=== PATIENT | male | born 1945 | race Caucasian/White ===

== ENCOUNTER 2017-12-19 15:43 | Emergency (ER) | payer BC, OTHER ==
--- OUTSIDE RECORDS SUMMARY | 2017-12-19 15:46 | XMS REPORT | Clinical Summary ---
:1945 Author Organization [facility] Address [address] [place] [address] Care Team Providers Name Role Phone Jaspreet May MD Primary Care Provider Allergies No Known Allergies Current Medications Prescription Sig. Disp. Refills Start Date End Date Status clonAZEPAM (KlonoPIN) 1 mg nightly. 04/27/2015 Active 1 MG tablet metoprolol succinate Take 25 mg by 04/24/2015 Active XL (TOPROL-XL) 25 MG mouth daily. 24 hr tablet sucralfate (CARAFATE) Take 1 g by 04/22/2015 Active 1 gram tablet mouth nightly. imipramine (TOFRANIL) Take 50 mg by 02/27/2015 Active 50 MG tablet mouth nightly. alendronate (FOSAMAX) Take 70 mg by 04/29/2015 Active 70 MG tablet mouth every 7 days. meloxicam (MOBIC) 7.5 Take 15 mg by 07/07/2015 Active MG tablet mouth daily. traZODone (DESYREL) Take 150 mg 01/17/2017 Active 150 MG tablet by mouth nightly. baclofen (LIORESAL) 04/22/2015 Discontinued 10 MG tablet 8 ibuprofen 04/22/2015 Discontinued (ADVIL,MOTRIN) 600 MG 8 tablet traZODone (DESYREL) 04/01/2015 Discontinued 100 MG tablet 7 tiZANidine (ZANAFLEX) 04/24/2015 Discontinued 4 MG tablet 8 furosemide (LASIX) 40 05/02/2015 Discontinued MG tablet 8 ciclopirox 0.77 % gel 08/24/2015 Discontinued 8 XARELTO 10 mg tablet 08/21/2015 Discontinued 8 potassium citrate Take by mouth Discontinued (UROCIT-K) 10 mEq 3 (three) 8 (1,080 mg) CR tablet times a day with meals. cephalexin (KEFLEX) Take 1 21 capsule 0 11/23/2017 250 MG capsule capsule (250 8 mg total) by mouth 3 (three) times a day for 7 days. phenazopyridine Take 1 tablet 9 tablet 0 11/23/2017 (PYRIDIUM) 200 MG (200 mg 8 tablet total) by mouth 3 (three) times a day for 3 days. traMADol (ULTRAM) 50 Take 1 tablet 40 tablet 0 11/23/2017 mg tablet (50 mg total) 8 by mouth every 6 (six) hours as needed for moderate pain (pain) for up to 8 days. 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 Encounters Date Type Specialty Care Team Description 12/19/2017 Hospital Encounter Radiology [facility] Kidney stones Addi MD 12/19/2017 Pre-Admit Testing Pre-Admission [facility] Preop examination (Primary Dx); Appointment Testing Addi MD History of hepatitis B 12/19/2017 Telephone Urology Shantelle Braxton MA 12/19/2017 Anesthesia Event Pre-Admission Lucy Wolf WJacquie, OUTPATIENT INTERVIEWING CLERK 11/28/2017 Office Visit Urology [facility] Kidney stones Addi MD (Primary Dx) 11/23/2017 Hospital Encounter Urology [facility] Ureteral calculus, , Addi Good MD right 11/23/2017 Procedure Pass Urology 11/23/2017 Surgery [facility] CYSTOSCOPY, RIGHT , Addi Good MD URETEROSCOPY W/ RIGHT RETROGRADE PYELOGRAM, RIGHT LITHOTRIPSY, RIGHT DOUBLE J STENT PLACEMENT 11/21/2017 Anesthesia Event Urology Ela Patel, OPAL 11/20/2017 Pre-Admit Testing Pre-Admission [facility] Preop testing Appointment Testing Addi MD (Primary Dx) 11/17/2017 Ancillary Orders Urology [facility]-C[facility] Kidney stone , Addi Good MD 11/16/2017 Office Visit Urology [facility] BPH with elevated PSA ( Primary Dx); , Addi Good MD Calculus of kidney 11/10/2017 Telephone Urology Latisha Peralta, Kidney stone (Primary [place] Dx) 11/07/2017 Procedure visit Urology [facility] Elevated PSA; , Addi Good MD Calculus of other lower urinary tract location 11/07/2017 Orders Only Urology Lisa-Addi Cruz MD 11/02/2017 Hospital Encounter Radiology [facility] Elevated PSA; , Addi Good MD Calculus of other lower urinary tract location 11/01/2017 Telephone Urology Latisha Peralta, [place] 10/30/2017 Telephone Urology Addi Arteaga MD 10/27/2017 Telephone Urology Latisha [place], [place] 10/24/2017 Office Visit Urology [facility] Elevated PSA (Primary Dx); , Addi Good MD Calculus of kidney 09/19/2017 Telephone Urology Latisha [place], [place] 06/13/2017 Telephone Urology Addi Arteaga MD 06/08/2017 Office Visit Urology [facility] Elevated PSA (Primary , Addi Good MD Dx) 04/26/2017 Orders Only Urology Addi Arteaga MD 04/25/2017 Office Visit Urology [facility]Cruz BPH with , Addi Good MD obstruction/lower urinary tract symptoms (Primary Dx) 01/26/2017 Office Visit Urology Lisa-Anthony Kidney stones (Primary Dx); , Addi Good MD BPH without obstruction/lower urinary tract symptoms after 12/18/2016 Family History Medical History Relation Name Comments Cancer Father No Known Problems Mother Relation Name Status Comments Father Mother Social History Tobacco Use Types Packs/Day Years Used Date Never Smoker Smokeless Tobacco: Never Used Alcohol Use Drinks/Week oz/Week Comments No Sex Assigned at Date Recorded Not on file Last Filed Vital Signs Vital Sign Reading Time Taken Blood Pressure 110/73 12/19/2017 9:15 AM EXECUTIVE SEARCH CONSULTANT Pulse 82 12/19/2017 9:15 AM EXECUTIVE SEARCH CONSULTANT Temperature 36.1 C (96.9 F) 12/19/2017 9:15 AM EXECUTIVE SEARCH CONSULTANT Respiratory Rate 16 12/19/2017 9:15 AM EXECUTIVE SEARCH CONSULTANT Oxygen Saturation 98% 12/19/2017 9:15 AM EXECUTIVE SEARCH CONSULTANT Inhaled Oxygen Concentration - - Weight 98.7 kg (217 lb 8 oz) 11/23/2017 11:30 AM CDT Height 185.4 cm (6' 1") 12/19/2017 9:15 AM EXECUTIVE SEARCH CONSULTANT Body Mass Index 29.5 11/23/2017 11:30 AM CDT Plan of Treatment Date Type Specialty Care Team Description 12/26/2017 Surgery Urology Addi Arteaga MD LEFT ESWL [address] [facility] [address] [place], [place] [id number] 12/26/2017 Procedure Pass Urology 12/26/2017 Hospital Encounter Urology Addi Arteaga MD [address] [facility] [address] [place] [address] [phone] 01/25/2018 Office Visit Urology Addi Arteaga MD [address] [facility] [address] [place] [address] [phone] Health Maintenance Due Date Last Done Comments COLON CANCER SCREENING 02/12/1994 SHINGRIX VACCINE (#1) 02/12/1994 ZOSTER VACCINE 2004 PNEUMOCOCCAL-13 02/12/2009 INFLUENZA VACCINE 09/13/2017 02/04/2014 PNEUMOCOCCAL POLYSACCHARIDE VACCINE AGE 65 AND OVER Completed 02/04/2014 Implants Implanted Type Area Clerical Manager Device Expiration Model / Identifier Date Serial / Lot Stent Contour Injection 6x28 - [id number] Surgical N/A: N/A [facility] UROLOGY 08/24/2019 [id number] / Implanted: Qty: 1 on 11/23/2017 by Addi Arteaga MD Stents / [id number] Procedures Procedure Name Priority Date/Time Associated Comments Diagnosis URINE CULTURE Routine 12/19/2017 11:33 Results for this AM EXECUTIVE SEARCH CONSULTANT procedure are in the results section. XR KUB KIDNEY URETER Routine 12/19/2017 10:00 Kidney stones Results for this BLADDER AM EXECUTIVE SEARCH CONSULTANT procedure are in the results section. URINALYSIS SCREEN AND Routine 12/19/2017 9:06 Preop examination Results for this MICROSCOPY, WITH REFLEX AM EXECUTIVE SEARCH CONSULTANT procedure are in TO CULTURE the results section. ESTIMATED GFR Routine 12/19/2017 9:05 Results for this AM EXECUTIVE SEARCH CONSULTANT procedure are in the results section. PARTIAL THROMBOPLASTIN Routine 12/19/2017 9:05 Preop examination Results for this TIME (PTT) AM EXECUTIVE SEARCH CONSULTANT History of procedure are in hepatitis B the results section. PROTHROMBIN TIME WITH Routine 12/19/2017 9:05 Preop examination Results for this INR AM EXECUTIVE SEARCH CONSULTANT History of procedure are in hepatitis B the results section. CBC HEMOGRAM Routine 12/19/2017 9:05 Preop examination Results for this AM EXECUTIVE SEARCH CONSULTANT procedure are in the results section. BASIC METABOLIC PANEL Routine 12/19/2017 9:05 Preop examination Results for this AM EXECUTIVE SEARCH CONSULTANT procedure are in the results section. CALCULI ANALYSIS WITH Routine 11/23/2017 2:30 Results for this PHOTO PM CDT procedure are in the results section. WV AN ELECTIVE Routine 11/23/2017 1:37 SUPRAGLOTTIC AIRWAY PM CDT Procedure Note - Dang Chauhan CRNA - 11/23/2017 1:37 PM CDT Airway Performed by: DANG CHAUHAN Authorized by: DARIA RAMOS Location: OR Urgency: Elective Difficult Airway: No Anesthesiologist: DARIA RAMOS Resident/INTERNAL AUDIT SENIOR MANAGER/AA: DANG CHAUHAN Performed by: resident/INTERNAL AUDIT SENIOR MANAGER/AA Preoxygenated with 100% O2: Yes Final Airway Type: Supraglottic airway Final LMA: Ambu LMA Size: 5 Number of Attempts at Approach: 1 CYSTO, URETEROSCOPY 11/23/2017 1:00 PM CDT Ureteral calculus, right Case Notes REQ 0800 START Special Needs REQ 0800 START POC PANEL Routine 11/23/2017 11:33 AM Results for this CDT procedure are in the results section. ESTIMATED GFR Routine 11/23/2017 11:33 AM Results for this CDT procedure are in the results section. URINE CULTURE Routine 11/20/2017 10:15 AM Results for this CDT procedure are in the results section. GRAM STAIN Routine 11/20/2017 10:15 AM Results for this CDT procedure are in the results section. HEPATIC FUNCTION Routine 11/20/2017 9:53 AM Preop testing Results for this PANEL CDT procedure are in the results section. ECG PRE/POST OP Routine 11/20/2017 9:48 AM Preop testing Results for this CDT procedure are in the results section. URINALYSIS SCREEN Routine 11/20/2017 9:38 AM Preop testing Results for this AND MICROSCOPY, WITH CDT procedure are in REFLEX TO CULTURE the results section. ESTIMATED GFR Routine 11/20/2017 9:37 AM Results for this CDT procedure are in the results section. BASIC METABOLIC Routine 11/20/2017 9:37 AM Preop testing Results for this PANEL CDT procedure are in the results section. CBC HEMOGRAM Routine 11/20/2017 9:37 AM Preop testing Results for this CDT procedure are in the results section. CT ABDOMEN PELVIS WO Routine 11/17/2017 8:28 AM Kidney stone Results for this CONTRAST CDT procedure are in the results section. [id number] Routine 11/16/2017 8:54 AM BPH with elevated Results for this CDT PSA procedure are in the results section. PTH, INTACT AND Routine 11/07/2017 10:43 AM Results for this CALCIUM CDT procedure are in the results section. US ABDOMINAL AORTA Routine 11/07/2017 9:13 AM Elevated PSA Results for this CDT Calculus of other procedure are in lower urinary the results tract location section. XR KUB KIDNEY URETER Routine 11/02/2017 10:55 AM Elevated PSA Results for this BLADDER CDT Calculus of other procedure are in lower urinary the results tract location section. PROSTATE SPECIFIC Routine 10/24/2017 3:46 PM Elevated PSA Results for this ANTIGEN CDT procedure are in the results section. POC URINALYSIS Routine 10/24/2017 12:45 PM Elevated PSA Results for this DIPSTICK CDT procedure are in the results section. US RENAL Routine 04/26/2017 12:00 AM CDT PSA, TOTAL AND FREE Routine 04/25/2017 2:22 PM BPH with Results for this CDT obstruction/lower procedure are in urinary tract the results symptoms section. POC URINALYSIS Routine 04/25/2017 1:43 PM BPH with Results for this DIPSTICK CDT obstruction/lower procedure are in urinary tract the results symptoms section. POC URINALYSIS Routine 01/26/2017 9:44 AM Kidney stones Results for this DIPSTICK EXECUTIVE SEARCH CONSULTANT BPH without procedure are in obstruction/lower the results urinary tract section. symptoms after 12/18/2016 Results Urine culture (12/19/2017 11:33 AM)Only the most recent of2 resultswithin the time period is included. Urine culture SEE COMMENTComment: Bacteriuria [facility] OF PATHOLOGY screen negative. AND GENOMIC MEDICINE Performing Organization Address [facility] Phone Number [facility] DE[facility] OF PATHOLOGY AND [address] [place] [address] GENOMIC MEDICINE XR Kub Kidney Ureter Bladder (12/19/2017 10:00 AM)Only the most recent of2 resultswithin the time period is included. Narrative Performed At EXAMINATION:XR KUB KIDNEY URETER [facility] CLINICAL HISTORY:N20.0 Calculus of kidney, kidney stone COMPARISON:To previous study from 11/02/2017 FINDINGS: Large amount of feces throughout the colon is present. No small bowel distention is appreciated. No abnormal abdominal calcifications are present. Multiple kyphoplasties are noted. IMPRESSION: Unremarkable abdominal radiograph. [facility]-[id number] Procedure Note Hm Interface, Radiology Results Incoming - 12/19/2017 10:04 AM EXECUTIVE SEARCH CONSULTANT EXAMINATION: XR KUB KIDNEY URETER BLADDER CLINICAL HISTORY: N20.0 Calculus of kidney, kidney stone COMPARISON: To previous study from 11/02/2017 FINDINGS: Large amount of feces throughout the colon is present. No small bowel distention is appreciated. No abnormal abdominal calcifications are present. Multiple kyphoplasties are noted. IMPRESSION: Unremarkable abdominal radiograph. [facility]-[id number] Performing Organization Address [facility] Phone Number [facility] [address] [place] [address] Urinalysis screen and microscopy, with reflex to culture (12/19/2017 9:06 AM) Only the most recent of2 resultswithin the time period is included. Specimen site Clean catch [facility] OF PATHOLOGY AND GENOMIC MEDICINE Color, UA Yellow [facility] PATHOLOGY AND GENOMIC MEDICINE Appearance, UA Clear [facility] OF PATHOLOGY AND GENOMIC MEDICINE Specific gravity, UA 1.023 1.001 - 1.035 [facility] OF PATHOLOGY AND GENOMIC MEDICINE pH, UA 5.0 5.0 - 8.5 [facility] OF PATHOLOGY AND GENOMIC MEDICINE Protein, UA 1+ (A) Negative [facility] OF PATHOLOGY AND GENOMIC MEDICINE Glucose, UA Negative Negative [facility] OF PATHOLOGY AND GENOMIC MEDICINE Ketones, UA Negative Negative [facility] OF PATHOLOGY AND GENOMIC MEDICINE Bilirubin, UA Negative Negative [facility] OF PATHOLOGY AND GENOMIC MEDICINE Blood, UA Negative Negative [facility] OF PATHOLOGY AND GENOMIC MEDICINE Nitrite, UA Negative Negative [facility] OF PATHOLOGY AND GENOMIC MEDICINE Urobilinogen, UA Footnote <2.0 [facility] DEPARTMENT OF Comment: PATHOLOGY AND GENOMIC Unable to report MEDICINE Corrected result; previously reported as 2.0 on 12/19/2017 at 11:48 by I/AUT Leukocyte esterase, UA Negative Negative [facility] OF PATHOLOGY AND GENOMIC MEDICINE WBC, UA 2 (H) 0 - 1 /HPF [facility] OF PATHOLOGY AND GENOMIC MEDICINE RBC, UA 1 0 - 5 /HPF [facility] OF PATHOLOGY AND GENOMIC MEDICINE Bacteria, UA Few None seen [facility] OF PATHOLOGY AND GENOMIC MEDICINE Yeast, UA None seen [facility] OF PATHOLOGY AND GENOMIC MEDICINE Yeast with None seen [facility] DE[facility]MENT OF pseudohyphae, UA PATHOLOGY AND GENOMIC MEDICINE Hyaline casts, UA >20 (A) /LPF [facility] OF PATHOLOGY AND GENOMIC MEDICINE Specimen Urine Performing Organization Address City/[facility] Cent[facility]ode Phone Number [facility] OF PATHOLOGY AND [address] [place] [phone] [facility] Estimated GFR (12/19/2017 9:05 AM)Only the most recent of3 resultswithin the time period is included. Estimated GFR 44 (A) mL/min/1.73 m2 [facility] OF Comment: PATHOLOGY AND GENOMIC CatergoryUnitsInterpretation MEDICINE G1 >=90 Normal or high G2 60-89Mildly decreased [id number] to moderately decreased V4c65-66Yairpercag to severely decreased G4 15-29Severely decreased G5 <15Kidney failure The eGFR was calculated using the Chronic Kidney Disease Epidemiology Collaboration (CKD-EPI) equation. Interpretation is based on recommendations of the National Kidney Foundation-Kidney Disease Outcomes Quality Initiative (NKF-KDOQI) published in 2014. Specimen Plasma specimen Performing Organization Address City/State/Zipcode Phone Number [facility]MENT OF PATHOLOGY AND [address] [place] [address] [facility] Partial thromboplastin time, activated (12/19/2017 9:05 AM) PTT 30.9 23.0 - 36.0 sec [facility] PATHOLOGY Comment: AND [facility] PTT therapeutic range for unfractionated heparin is 61.0-112.0 seconds which corresponds to Anti-Xa 0.3-0.7 U/ml. Specimen Blood Performing Organization Address City/[facility] Cent[facility]ode Phone Number [facility] OF PATHOLOGY AND [address] [place] [address] [facility] Prothrombin time with INR (12/19/2017 9:05 AM) Prothrombin time 14.0 11.5 - 14.5 sec [facility] DE[facility] OF PATHOLOGY AND GENOMIC MEDICINE INR 1.1 [facility]PARTMENT OF Comment: PATHOLOGY AND GENOMIC The International Normalized Ratio (INR) is a therapeutic MEDICINE monitoring tool for patients who are stable on oral anticoagulant therapy. An INR of 2.0-3.0 is suggested for deep vein thrombosis/pulmonary embolism. Specimen Blood Performing Organization Address City/[facility] Phone Number [facility] PATHOLOGY AND [address] [place], [place] [id number] [facility] CBC hemogram (12/19/2017 9:05 AM)Only the most recent of2 resultswithin the time period is included. WBC 7.59 4.50 - 11.00 k/uL [facility] DE[facility] OF PATHOLOGY AND GENOMIC MEDICINE RBC 4.72 4.40 - 6.00 m/uL [facility] DE[facility] OF PATHOLOGY AND GENOMIC MEDICINE HGB 12.3 (L) 14.0 - 18.0 g/dL [facility] OF PATHOLOGY AND GENOMIC MEDICINE HCT 39.6 (L) 41.0 - 51.0 % [facility] OF PATHOLOGY AND GENOMIC MEDICINE MCV 83.9 82.0 - 100.0 fL [facility]MENT OF PATHOLOGY AND GENOMIC MEDICINE MCH 26.1 (L) 27.0 - 34.0 pg [facility] OF PATHOLOGY AND GENOMIC MEDICINE MCHC 31.1 31.0 - 37.0 g/dL [facility] OF PATHOLOGY AND GENOMIC MEDICINE RDW - SD 44.5 37.0 - 55.0 fL [facility] OF PATHOLOGY AND GENOMIC MEDICINE MPV 10.9 8.8 - 13.2 fL [facility]MENT OF PATHOLOGY AND GENOMIC MEDICINE Platelet count 226 150 - 400 k/uL [facility]MENT OF PATHOLOGY AND GENOMIC MEDICINE Nucleated RBC 0.00 /100 WBC [facility] DE[facility]MENT OF PATHOLOGY AND GENOMIC MEDICINE Specimen Blood Performing Organization Address City/[facility] Cent[facility]ode Phone Number [facility] OF PATHOLOGY AND [address] [place] [address] [facility] Basic metabolic panel (12/19/2017 9:05 AM)Only the most recent of2 resultswithin the time period is included. Sodium 138 135 - 148 mEq/L [facility] OF PATHOLOGY AND GENOMIC MEDICINE Potassium 6.2 (HH) 3.5 - 5.0 mEq/L [facility] OF PATHOLOGY AND GENOMIC MEDICINE Chloride 103 98 - 112 mEq/L [facility]MENT OF PATHOLOGY AND GENOMIC MEDICINE CO2 25 24 - 31 mEq/L [facility] OF PATHOLOGY AND GENOMIC MEDICINE Anion gap 10@ANIO 7 - 15 mEq/L [facility] OF PATHOLOGY AND GENOMIC MEDICINE BUN 25 (H) 8 - 23 mg/dL [facility] OF PATHOLOGY AND GENOMIC MEDICINE Creatinine 1.54 (H) 0.70 - 1.20 mg/dL [facility] OF PATHOLOGY AND GENOMIC MEDICINE Glucose 84 65 - 99 mg/dL [facility]MENT OF PATHOLOGY AND GENOMIC MEDICINE Calcium 9.4 8.8 - 10.2 mg/dL [facility] OF PATHOLOGY AND GENOMIC MEDICINE Specimen Plasma specimen Performing Organization Address City/State/Zipcode Phone Number [facility] OF PATHOLOGY AND [address] [place] [address] [facility] Calculi analysis with photo (11/23/2017 2:30 PM) Calculi mass 5 mg [facility] Calculi number 1 [facility] Calculi size 1 to 4 mm [facility] Calculi descrption See Note [facility] Comment: Specimen consists of a single, small, brown/joseph, irregular calculus. Calculi composition See Note [facility] Comment: Calculi composed primarily of calcium oxalate monohydrate. INTERPRETIVE INFORMATION: Calculi (Stone) analysis Calculi are the products of physiological processes that yield crystalline compounds in a matrix of biological compounds and blood.Matrix components are not reported.The clinically significant crystalline components identified in calculi specimens are reported.Gross description may not be consistent with composition determined by FTIR analysis. EER calculi (stone) analysis See Note [facility] and photo Comment: Access [facility] Enhanced Report using either link below: -Direct access: [email or web address] -Enter Username, Password: [email or web address] Username: [email or web address] Password: [email or web address] Performed by [facility], [address] [place] [address] [email or web address], Pavan Dyer MD - Lab. Director Specimen Serum Narrative Performed At [id number] [facility] RIGHT RENAL STONE Performing Organization Address City/[facility]/Zipcode Phone Number [facility] [address] [place] [address] POC panel (11/23/2017 11:33 AM) POC sodium 140 135 - 148 mmol/L [facility]MENT OF PATHOLOGY AND GENOMIC MEDICINE POC potassium 5.3 (H) 3.5 - 5.0 mmol/L [facility] OF PATHOLOGY AND GENOMIC MEDICINE POC chloride 103 99 - 109 mmol/L [facility] OF PATHOLOGY AND GENOMIC MEDICINE POC CO2 28 24 - 31 mmol/L [facility] OF PATHOLOGY AND GENOMIC MEDICINE POC glucose 103 (H) 65 - 99 mg/dL [facility] OF PATHOLOGY AND GENOMIC MEDICINE POC BUN 26 (H) 8 - 24 mg/dL [facility] OF PATHOLOGY AND GENOMIC MEDICINE POC creatinine 1.3 (H) 0.7 - 1.2 mg/dl [facility] OF PATHOLOGY AND GENOMIC MEDICINE POC hematocrit 38 (L) 41 - 51 % [facility]MENT OF PATHOLOGY AND GENOMIC MEDICINE POC anion gap 15 8 - 20 mmol/L [facility]MENT OF PATHOLOGY Comment: AND [facility] MEDICINE Meter ID: [id number] [employer] Professional: Cirilo Bowie Performing Organization Address [facility] Cent[facility]ode Phone Number [facility] OF PATHOLOGY AND [address] [place] [address] GENOMIC MEDICINE Gram stain (11/20/2017 10:15 AM) Gram stain result Few WBC's [facility] PATHOLOGY No organisms seen AND [facility]IC[facility] Comment: Specimen Information Specimen Source: Urine Specimen Site: Clean catch Specimen Urine Performing Organization Address City/[facility]/Zipcode Phone Number [facility]MENT OF PATHOLOGY AND [address] [place] [address] GENOMIC MEDICINE Hepatic function panel (11/20/2017 9:53 AM) Albumin 3.2 (L) 3.5 - 5.0 g/dL [facility]MENT OF PATHOLOGY AND GENOMIC MEDICINE Total bilirubin <0.2 0.0 - 1.2 mg/dL [facility]MENT OF PATHOLOGY AND GENOMIC MEDICINE Bilirubin direct <0.2 0.0 - 0.3 mg/dL [facility] DE[facility]MENT OF PATHOLOGY AND GENOMIC MEDICINE Alkaline phosphatase 101 40 - 129 U/L [facility] DEPARTMENT OF PATHOLOGY AND GENOMIC MEDICINE Protein 6.6 6.3 - 8.3 g/dL [facility]PARTMENT OF Comment: PATHOLOGY AND GENOMIC [place] 4.6-7.0 g/dL MEDICINE 1 week 4.4-7.6 g/dL 7 months-1year5.1-7.3 g/dL 1-2 years5.6-7.5 g/dL >3 years6.0-8.0 g/dL 18-150 6.3-8.3 g/dL ALT 12 5 - 50 U/L [facility] DEPARTMENT OF PATHOLOGY AND GENOMIC MEDICINE AST 11 10 - 50 U/L [facility] DE[facility]MENT OF PATHOLOGY AND GENOMIC MEDICINE Specimen Plasma specimen Performing Organization Address City/[facility] Phone Number [facility]MENT OF PATHOLOGY AND [address] [place] [address] [facility] ECG Pre/Post Op (11/20/2017 9:48 AM) Ventricular rate 74 [facility] MUSE Atrial rate 74 [facility] [place] interval 154 [facility] QRSD interval 118 [facility] QT interval 390 [facility] QTC interval 432 [facility] P axis 1 58 [facility] QRS axis 1 -3 [facility] T wave axis 83 [facility] EKG impression Normal sinus rhythm-Left ventricular [facility] hypertrophy with QRS widening-Inferior infarct , age undetermined-Abnormal ECG-No previous ECGs available- Performing Organization Address [facility] [place] Phone Number [facility] [place] [address] [place] [address] CT Abdomen Pelvis Wo Contrast (11/17/2017 8:28 AM) Narrative Performed At EXAMINATION:CT ABDOMEN PELVIS WO CONTRAST RADIANT CLINICAL HISTORY:N20.0 Calculus of kidney, stone protocol TECHNIQUE: Multiple axial images of the abdomen and pelvis were obtained without intravenous administration of iodinated contrast. Sagittal and coronal computerized reformatted images were also obtained. The lack of intravenous contrast reduces the sensitivity of detecting solid organ disease.CT imaging was performed with iterative reconstruction technique and/or automated exposure control to reduce radiation dose. COMPARISON:09/16/2015 FINDINGS: Abdomen: Small hiatal hernia is seen. Subsegmental lingular atelectasis is seen. The liver, spleen, adrenals are normal in appearance. Gallbladder is unremarkable. Pancreas is fatty. There is mild right hydronephrosis versus parapelvic cysts. There is a proximal right ureteral stone measuring 8 mm. Left parapelvic renal cysts are seen. Stone in the left kidney is 7 mm. A couple tiny right renal stones are also seen. Appendix is unremarkable. Mild mesenteric stranding is unchanged. Pelvis: Sigmoid diverticula are seen. No enlarged pelvic or mass is identified. Bones are osteopenic. L1, T12, and T8 kyphoplasty changes are present. Bladder is unremarkable. IMPRESSION: Proximal 8mm right ureteral obstructing stone. Small hiatal hernia. A message was left for Dr. Arteaga at the time of this dictation. [id number] Procedure Note Hm Interface, Radiology Results Incoming - 11/17/2017 10:06 AM CDT EXAMINATION: CT ABDOMEN PELVIS WO CONTRAST CLINICAL HISTORY: N20.0 Calculus of kidney, stone protocol TECHNIQUE: Multiple axial images of the abdomen and pelvis were obtained without intravenous administration of iodinated contrast. Sagittal and coronal computerized reformatted images were also obtained. The lack of intravenous contrast reduces the sensitivity of detecting solid organ disease.CT imaging was performed with iterative reconstruction technique and/or automated exposure control to reduce radiation dose. COMPARISON: 09/16/2015 FINDINGS: Abdomen: Small hiatal hernia is seen. Subsegmental lingular atelectasis is seen. The liver, spleen, adrenals are normal in appearance. Gallbladder is unremarkable. Pancreas is fatty. There is mild right hydronephrosis versus parapelvic cysts. There is a proximal right ureteral stone measuring 8 mm. Left parapelvic renal cysts are seen. Stone in the left kidney is 7 mm. A couple tiny right renal stones are also seen. Appendix is unremarkable. Mild mesenteric stranding is unchanged. Pelvis: Sigmoid diverticula are seen. No enlarged pelvic or mass is identified. Bones are osteopenic. L1, T12, and T8 kyphoplasty changes are present. Bladder is unremarkable. IMPRESSION: Proximal 8mm right ureteral obstructing stone. Small hiatal hernia. A message was left for Dr. Arteaga at the time of this dictation. [id number] Performing Organization Address City/State/Zipcode Phone Number [facility] [address] [place] [address] POC BLADDER SCAN/PVR (11/16/2017 8:54 AM) Specimen Urine Impressions Performed At 36 ml PTH, intact and calcium (11/07/2017 10:43 AM) Calcium 9.2 8.6 - 10.2 mg/dL [facility] PTH 41 15 - 65 pg/mL [facility] PTH Comment [facility] 02 Comment: Interpretation Intact PTHCalcium (pg/mL) (mg/dL) Vcfvdd36 - 65 8.6 - 10.2 Primary Hyperparathyroidism >65>10.2 Secondary Hyperparathyroidism >65<10.2 Non-Parathyroid Hypercalcemia <65>10.2 Hypoparathyroidism<15 < 8.6 Non-Parathyroid [id number] - 65< 8.6 Narrative Performed At Performed at:01 - [facility] [address] [place], [id number] Regional Account Manager: Eric Zuluaga MD, Phone:[phone] Performed at: - [id number] Regional Account Manager: Jasvir Palmer MD, Phone:[phone] Performing Organization Address [facility] [place] Phone Number [facility] 02 US Abdominal Aorta (11/07/2017 9:13 AM) Narrative Performed At Renal Ultrasound: [employer] Bilateral renal Ultrasound is performed in Axial and longitudinal orientation. Diagnosis: calculus of Kidney, Elevated PSA Right Kidney: Size: Length: 10.3 cm. X AP diameter: 4.7 cm. X Transverse 4.4 cm. Echogenicity: Normal Atrophy: No Cyst:Yes Mass:No Stone:Yes Hydronephrosis:none Grade: Left Kidney: Size: Length: 10.8 cm. X AP diameter: 5.1 cm. X Transverse 4.7 cm. Echogenicity: Normal Atrophy: No Cyst:Yes Mass:No Stone:Yes Hydronephrosis:none Grade: Post Void Residual:0 mL. Comments: Bilateral small parapelvic cysts are identified. 6 mm calcification at lower pole of right kidney and sub-centimert calcification is seen in lower pole left kidney . Performing Organization Address City/[facility] Phone Number [employer] [address] [place] [address] Prostate specific antigen (10/24/2017 3:46 PM) PSA 2.5 0.0 - 4.0 ng/mL [facility] Comment: Dima ECLIA methodology. According to the [place] [employer], Serum PSA should decrease and remain at undetectable levels after radical prostatectomy. The AUA defines biochemical recurrence as an initial PSA value 0.2 ng/mL or greater followed by a subsequent confirmatory PSA value 0.2 ng/mL or greater. Values obtained with different assay methods or kits cannot be used interchangeably. Results cannot be interpreted as absolute evidence of the presence or absence of malignant disease. Specimen Blood Narrative Performed At Performed at: - [facility] [address] [facility], [id number] Regional Account Manager: Eric Zuluaga MD, Phone:[phone] Performing Organization Address City/State/Zipcode Phone Number [facility] POC urinalysis dipstick (10/24/2017 12:45 PM)Only the most recent of3 resultswithin the time period is included. Color urine, POC Yellow Clarity urine, POC Clear Glucose urine, POC Negative Negative Bilirubin urine, POC Positive (A) Negative Ketones urine, POC Trace (A) Negative Specific gravity urine, POC 1.025 1.005 - 1.030 Blood urine, POC Negative Negative pH urine, POC 6.0 5.0, 5.5, 6.0, 6.5, 7.0, 7.5, 8.0, 8.5 Protein urine, POC 1+ (A) Negative Urobilinogen urine, POC <2.0 <2.0 Nitrite urine, POC Negative Negative Leukocyte esterase urine, POC Negative Negative Specimen Urine US Renal (04/26/2017) Narrative Performed At PSA, total and free (04/25/2017 2:22 PM) PSA 3.4 0.0 - 4.0 ng/mL [facility] Comment: Dima ECLIA methodology. According to the [employer] [place] [employer], Serum PSA should decrease and remain at undetectable levels after radical prostatectomy. The AUA defines biochemical recurrence as an initial PSA value 0.2 ng/mL or greater followed by a subsequent confirmatory PSA value 0.2 ng/mL or greater. Values obtained with different assay methods or kits cannot be used interchangeably. Results cannot be interpreted as absolute evidence of the presence or absence of malignant disease. PSA, free 1.01Comment: Dima ECLIA methodology. N/A ng/mL [facility] PSA, free percent 29.7 % [facility] Comment: The table below lists the probability of prostate cancer for men with non-suspicious DEB results and total PSA between 4 and 10 ng/mL, by patient age (Janel et al, ANIA 1998, 279:1542). % Free PSA 50-64 yr 65-75 yr 0.00-10.00%56% 55% 10.01-15.00%24% 35% 15.01-20.00%17% 23% 20.01-25.00%10% 20% >25.00% 5% 9% Please note:Janel et al did not make specific recommendations regarding the use of percent free PSA for any other population of men. Specimen Blood Narrative Performed At Performed at: [facility] [address] [place], [id number] Regional Account Manager: Eric Zuluaga MD, Phone:[phone] Performing Organization Address City/State/Zipcomi Phone Number [facility] after 12/18/2016 Insurance Payer Benefit Plan / Group Subscriber ID Type Phone Address MEDICARE MEDICARE PART A AND B xxxxxxxxxx Medicare [place], [place] BCBS BCBS CHOICE PPO/FEDERAL EMPL PPO xxxxxxxxx PPO Home: [facility] LEAH MARY ANN Jacquie [phone] [address]
--- OUTSIDE RECORDS SUMMARY | 2017-12-19 15:46 | XMS REPORT ---
:1945 Author Organization [facility] Address [address] [place] [address] Dr. Lamb [address] [place] [id number] Care Team Providers Name Role Phone JUAN SANTO Primary Care Provider Unavailable Problems This patient has no known problems. Allergies, Adverse Reactions, Alerts This patient has no known allergies or adverse reactions. Medications This patient has no known medications. Encounters Start End Encounter Admission Attending Care Care Encounter Date/Time Date/Time Type Type Clinicians Facility Department ID 2016-09-14 2016-09-14 Outpatient C [facility] [id number] 10:25:00 10:25:00
[2017-12-19 16:24] LABS: Potassium 5.3 mmol/L (3.5-5.1)
--- NOTE | 2017-12-19 16:29 | ER ---
Nurse's Notes [facility] Name: Deangelo Borges Jr Age: 72 yrs Sex: Male : 1945 Arrival Date: 12/19/2017 Time: 15:44 Bed 14 Private MD: Diagnosis: Encounter for screening for nutritional, metabolic and other endocrine disorders Presentation: 12/19 15:45 Presenting complaint: Patient states: blood work for pre op for lithotripsy showed K of hj 6.2; was told to come to the ED;. Transition of care: patient was not received from another setting of care. Onset of symptoms was December 19, 2017. Risk Assessment: Do you want to hurt yourself or someone else? Patient reports no desire to harm self or others. Initial Sepsis Screen: Does the patient meet any 2 criteria? No. Patient's initial sepsis screen is negative. Does the patient have a suspected source of infection? No. Patient's initial sepsis screen is negative. Care prior to arrival: None. 15:45 Method Of Arrival: Ambulatory 15:45 Acuity: JOSE 3 hj Triage Assessment: 15:50 General: Appears in no apparent distress. uncomfortable, Behavior is calm, cooperative, hj appropriate for age. Pain: Denies pain. Historical: - Allergies: 15:49 No Known Allergies; hj - PMHx: 15:49 Kidney stones; CHF; hj - PSHx: 15:49 joint surgery; hj - Immunization history:: Adult Immunizations up to date. - Social history:: Smoking status: Patient/guardian denies using tobacco, Patient/guardian denies using alcohol. - Ebola Screening: : Patient negative for fever greater than or equal to 101.5 degrees Fahrenheit, and additional compatible Ebola Virus Disease symptoms Patient denies exposure to infectious person Patient denies travel to an Ebola-affected area in the 21 days before illness onset. Screenin:50 Abuse screen: Denies threats or abuse. Denies injuries from another. Nutritional hj screening: No deficits noted. Tuberculosis screening: No symptoms or risk factors identified. Fall Risk None identified. Assessment: 15:52 General: Appears in no apparent distress. well groomed, Behavior is calm, cooperative, tw2 appropriate for age. Neuro: Level of Consciousness is awake, alert, obeys commands, Oriented to person, place, time, situation. 15:52 Cardiovascular: Denies chest pain, shortness of breath, Heart tones S1 S2 Patient's tw2 skin is warm and dry. Edema is 2+ to left midcalf and right midcalf. Respiratory: Airway is patent Respiratory effort is even, unlabored, Respiratory pattern is regular, symmetrical, Breath sounds are clear bilaterally. GI: No signs and/or symptoms were reported involving the gastrointestinal system. Abdomen is round non-distended, Bowel sounds present X 4 quads. : No signs and/or symptoms were reported regarding the genitourinary system. EENT: No signs and/or symptoms were reported regarding the EENT system. Derm: No signs and/or symptoms reported regarding the dermatologic system. Musculoskeletal: Range of motion: intact in all extremities. 16:50 Reassessment: Patient appears in no apparent distress at this time. Patient and/or iw family updated on plan of care and expected duration. Pain level reassessed. Patient is alert, oriented x 3, equal unlabored respirations, skin warm/dry/pink. Patient states feeling better. Patient states symptoms have improved. Vital Signs: 15:50 BP 113 / 77; Pulse 89; Resp 18; Temp 97.2(TE); Pulse Ox 97% on R/A; Weight 98.88 kg; hj Height 6 ft. 1 in. (185.42 cm); Pain 0/10; 15:50 Body Mass Index 28.76 (98.88 kg, 185.42 cm) ED Course: 15:44 Patient arrived in ED. as 15:48 Triage completed. hj 15:50 Arm band placed on right wrist. hj 15:50 Patient has correct armband on for positive identification. Placed in gown. Bed in low hj position. Call light in reach. Side rails up X 1. Adult w/ patient. 15:51 Mumtaz Mahmood MD is Attending Physician. gs 15:54 Alisha Scott, FRANCISCO is Primary Nurse. tw2 16:00 Inserted saline lock: 22 gauge in left antecubital area, using aseptic technique. Blood tw2 collected. 16:05 EKG done, by remanufacturing technician. reviewed by Mumtaz Mahmood MD. sm3 16:51 No provider procedures requiring assistance completed. IV discontinued, intact, iw bleeding controlled, No redness/swelling at site. Pressure dressing applied. Administered Medications: No medications were administered Outcome: 16:29 Discharge ordered by . 16:51 Discharged to home ambulatory, with family. 16:51 Condition: good 16:51 Discharge instructions given to family, Instructed on discharge instructions, follow up and referral plans. Demonstrated understanding of instructions, follow-up care. 16:52 Patient left the ED. iw Signatures: Phoebe Rodriguez Irene, RN RN Shawn Abel RN RN Alisha Scott RN RN 2 Mumtaz Mahmood MD MD Skylar Crocker 3
--- NOTE | 2017-12-19 16:29 | EDPHYS ---
Physician Documentation [facility] Name: Deangelo Borges Jr Age: 72 yrs Sex: Male : 1945 Arrival Date: 12/19/2017 Time: 15:44 Bed 14 Private MD: ED Physician Mumtaz Mahmood HPI: 12/19 16:19 This 72 yrs old Male presents to ER via Ambulatory with complaints of gs Abnormal Lab Results. 16:19 blood work showed elevated potassium. Onset: The symptoms/episode began/occurred today. gs Severity of symptoms: At their worst the symptoms were mild in the emergency department the symptoms are unchanged. The patient has not experienced similar symptoms in the past. Historical: - Allergies: 15:49 No Known Allergies; hj - PMHx: 15:49 Kidney stones; CHF; hj - PSHx: 15:49 joint surgery; hj - Immunization history:: Adult Immunizations up to date. - Social history:: Smoking status: Patient/guardian denies using tobacco, Patient/guardian denies using alcohol. - Ebola Screening: : Patient negative for fever greater than or equal to 101.5 degrees Fahrenheit, and additional compatible Ebola Virus Disease symptoms Patient denies exposure to infectious person Patient denies travel to an Ebola-affected area in the 21 days before illness onset. ROS: 16:19 All other systems are negative. gs Exam: 16:19 Head/Face: Normocephalic, atraumatic. Eyes: Pupils equal round and reactive to light, gs extra-ocular motions intact. Lids and lashes normal. Conjunctiva and sclera are non-icteric and not injected. Cornea within normal limits. Periorbital areas with no swelling, redness, or edema. ENT: Nares patent. No nasal discharge, no septal abnormalities noted. Tympanic membranes are normal and external auditory canals are clear. Oropharynx with no redness, swelling, or masses, exudates, or evidence of obstruction, uvula midline. Mucous membranes moist. Neck: Trachea midline, no thyromegaly or masses palpated, and no cervical lymphadenopathy. Supple, full range of motion without nuchal rigidity, or vertebral point tenderness. No Meningismus. Chest/axilla: Normal chest wall appearance and motion. Nontender with no deformity. No lesions are appreciated. Cardiovascular: Regular rate and rhythm with a normal S1 and S2. No gallops, murmurs, or rubs. Normal PMI, no JVD. No pulse deficits. Respiratory: Lungs have equal breath sounds bilaterally, clear to auscultation and percussion. No rales, rhonchi or wheezes noted. No increased work of breathing, no retractions or nasal flaring. Abdomen/GI: Soft, non-tender, with normal bowel sounds. No distension or tympany. No guarding or rebound. No evidence of tenderness throughout. Skin: Warm, dry with normal turgor. Normal color with no rashes, no lesions, and no evidence of cellulitis. MS/ Extremity: Pulses equal, no cyanosis. Neurovascular intact. Full, normal range of motion. Neuro: Awake and alert, GCS 15, oriented to person, place, time, and situation. Cranial nerves II-XII grossly intact. Motor strength 5/5 in all extremities. Sensory grossly intact. Cerebellar exam normal. Normal gait. 16:19 Constitutional: The patient appears alert, awake. Vital Signs: 15:50 BP 113 / 77; Pulse 89; Resp 18; Temp 97.2(TE); Pulse Ox 97% on R/A; Weight 98.88 kg; hj Height 6 ft. 1 in. (185.42 cm); Pain 0/10; 15:50 Body Mass Index 28.76 (98.88 kg, 185.42 cm) hj MDM: 16:16 Patient medically screened. 12/19 15:52 Order name: Basic Metabolic Panel; Complete Time: 16:28 12/19 15:52 Order name: EKG; Complete Time: 15:52 12/19 15:52 Order name: EKG - Nurse/Tech; Complete Time: 16:06 12/19 15:54 Order name: IV Start; Complete Time: 16:03 tw2 EC:19 Rate is 82 beats/min. QRS interval is prolonged. T waves are Flattened. No ST changes gs noted. Clinical impression: Abnormal EKG without significant change. Interpreted by me. Administered Medications: No medications were administered Disposition: 12/19/17 16:29 Discharged to Home. Impression: Encounter for screening for nutritional, metabolic and other endocrine disorders. - Condition is Stable. - Discharge Instructions: Hyperkalemia, [id number]. - Medication Reconciliation Form, Thank You Letter, Antibiotic Education, Prescription Opioid Use form. - Follow up: Private Physician; When: 1 - 2 days; Reason: Re-evaluation by your physician. Signatures: Dispatcher [employer] Leslie Polo RN FRANCISCO iw Shawn Abel RN RN hj Alisha Scott RN RN tw2 Mumtaz Mahmood MD MD gs Corrections: (The following items were deleted from the chart) 16:52 16:29 12/19/2017 16:29 Discharged to Home. Impression: Encounter for screening for iw nutritional, metabolic and other endocrine disorders. Condition is Stable. Forms are Medication Reconciliation Form, Thank You Letter, Antibiotic Education, Prescription Opioid Use. Follow up: Private Physician; When: 1 - 2 days; Reason: Re-evaluation by your physician. gs
--- NOTE | 2017-12-19 18:03 | EKG ---
Test Date: 2017-12-19 Test Time: 16:01:26 Test Desk Trouble Locator: AIXA MEASUREMENT RESULTS: Intervals: Rate: 82 MN: 148 QRSD: 122 QT: 380 QTc: 443 [place]: P: 59 MN: 148 QRS: 12 T: 76 INTERPRETIVE STATEMENTS: Normal sinus rhythm Nonspecific intraventricular conduction delay Nonspecific T wave abnormality Abnormal ECG No previous ECG available for comparison Electronically Signed On 12-19-17 18:02:50 [employer] ATTORNEY by Jovan Peterson
== END 2017-12-19 16:52 | disposition home or self-care (01) ==
LOC: ER 15:43
DX: Z13.29 Encounter for screening for other suspected endocrine disorder (principal); Z13.228 Encounter for screening for other metabolic disorders
CPT/HCPCS: 36415; 80048; 93005; 99283

== ENCOUNTER 2020-02-17 09:55 | Observation (INO) | payer BC, OTHER ==
--- OUTSIDE RECORDS SUMMARY | 2020-02-17 10:17 | XMS REPORT | Clinical Summary ---
:1945 Author Organization [facility] Address [address] [place] [address] Care Team Providers Name Role Phone Get May MD Primary Care Provider Allergies No Known Active Allergies Medications Medication Sig Dispensed Refills Start End Date Status Date clonAZEPAM Take 1 mg by 0 Active (KlonoPIN) 1 MG mouth 6 tablet nightly. metoprolol succinate Take 25 mg by 0 Active XL (TOPROL-XL) 25 MG mouth daily. 6 24 hr tablet sucralfate Take 1 g by 0 Active (CARAFATE) 1 gram mouth 6 tablet nightly. imipramine Take 150 mg 0 Active (TOFRANIL) 50 MG by mouth 6 tablet nightly. traZODone (DESYREL) Take 150 mg 0 Active 150 MG tablet by mouth 7 nightly. omeprazole OTC Take 20 mg by 0 A ctive (PriLOSEC OTC) 20 MG mouth 8 EC tablet nightly. simvastatin (ZOCOR) Take 20 mg by 0 Active 20 MG tablet mouth 0 nightly. FUROSEMIDE ORAL Take by mouth 0 Active daily as needed. alendronate Take 70 mg by 0 04/19/19 Disc ontinued (FOSAMAX) 70 MG mouth every 7 6 20 (Therapy tablet days. Q completed) Mondays betamethasone 0 02/28/19 Discon tinued dipropionate 9 20 (Therap y (DIPROLENE) 0.05 % c ompleted) cream fluorouracil 0 09/12/201 01/16/20 Discont inued (EFUDEX) 5 % cream 9 20 ( Therapy completed) gabapentin 0 02/28/19 Discontin ued (NEURONTIN) 300 mg 9 20 ( Patient capsule Reported) phenazopyridine Take 1 tablet 15 tablet 0 03/13/19 (PYRIDIUM) 100 MG (100 mg 0 20 tablet total) by mouth 3 (three) times a day as needed for bladder spasms for up to 5 days. docusate sodium Take 1 60 capsule 0 04/07/19 Exp ired (COLACE) 100 MG capsule (100 0 20 capsule mg total) by mouth 2 (two) times a day for 30 days. ciprofloxacin Take 1 tablet 10 tablet 0 03/13/19 Ex pired (CIPRO) 500 MG (500 mg 0 20 tablet total) by mouth 2 (two) times a day for 5 days. docusate sodium Take 1 60 capsule 0 05/19/19 Exp ired (COLACE) 100 MG capsule (100 0 20 capsule mg total) by mouth 2 (two) times a day for 30 days. traMADoL (ULTRAM) 50 Take 1 tablet 5 tablet 0 04/25 mg (50 mg total) 0 20 tabletIndications: by mouth acute pain every 6 (six) hours as needed for moderate pain or severe pain for up to 5 doses .acute pain. phenazopyridine Take 1 tablet 30 tablet 0 04/29/19 (PYRIDIUM) 100 MG (100 mg 0 20 tablet total) by mouth 3 (three) times a day as needed for bladder spasms (burning with urination) for up to 10 days. sulfamethoxazole-tri Take 1 tablet 10 tablet 0 04/23 methoprim (BACTRIM by mouth 2 0 20 DS) 800-160 mg per (two) times a tablet day for 5 days. tamsulosin (FLOMAX) Take 1 15 capsule 0 05/09/19 0.4 mg capsule capsule (0.4 0 20 mg total) by mouth daily with dinner for 15 days. Active Problems Problem Noted Date BPH with urinary obstruction 03/07/2019 Kidney stones 09/01/2015 Benign non-nodular prostatic hyperplasia without lower urinary tract 05/27/2015 symptoms Corporo-venous occlusive erectile dysfunction 05/27/19 16 Encounters Date Type Specialty Care Team Description 10/29/2019 Orders Only Urology Suyapa Harvey, Prostate canc er ([facility]) VAHID (Primary Dx) 07/01/2019 Clinical Support Urology Lynette BPH with Addi bahena, obstruction/lo wer MD urinary tract s ymptoms (Primary Dx) 07/01/2019 Travel 06/27/2019 Travel 06/27/2019 Telephone UrologAddi Villarreal MD 05/21/2019 Travel 05/20/2019 Telemedicine Urology Lynette Prostate canc er ([facility]) Addi bahena (Primary Dx) 04/24/2019 Office Visit Urology Lynette Prostate canc er ([facility]) Addi bahena (Primary Dx) 04/24/2019 Travel 04/19/2019 Surgery Urology Lynette PROSTATIC HIF U Addi bahena MD 04/19/2019 Anesthesia Event Urology Anibal Rayo DO Everitt, Amanda W., OPAL 04/19/2019 Hospital Encounter UrologAddi Villarreal MD 04/12/2019 Pre-Admit Testing Pre-Admission Lynette Preop e xamination Appointment Testing Addi bahena (Primary Dx) 04/12/2019 Orders Only Urology Suyapa Harvey, BPH with obst ruction/lower urinary tract symptoms (Primary Dx); VAHID Preop cardiovas cular exam; Hematuria, unsp ecified type 04/12/2019 Orders Only Urology Suyapa Harvey, Preop cardiov ascular exam (Primary Dx); VAHID Enlarged prosta te with urinary obstruction; Hematuria, unsp ecified type 03/22/2019 Telephone Urology Addi Rain MD 03/20/2019 Office Visit Urology Lynette Prostate canc er ([facility]) (Primary Dx); Addi bahena, BPH with obstr uction/lower urinary tract symptoms 03/07/2019 Anesthesia Event Urology Ricardo Brown MD [place], [place], ADA ACCOMMODATION CONSULTANT 03/07/2019 Surgery Urology [facility] CYSTOSCOPY, W ITH TURP Addi bahena MD 03/07/2019 - Hospital Encounter General Internal [facility] BPH with urinary 03/08/2019 Medicine Addi bahena obstruction 02/28/2019 [facility]hen[facility] 02/28/2019 [facility] ([facility]x); Addi bahena, BPH with obstr uction/lower urinary tract symptoms 02/22/2019 Orders Only Urology Suyapa Harvey, BPH with obst ruction/lower urinary tract symptoms (Primary Dx); MA Preop cardiovas cular exam; Hematuria, unsp ecified type after 02/16/2019 Surgical History Surgery Date Site/Laterality Comments CYSTOSCOPY LITHOTRIPSY LUMBAR LAMINECTOMY 02/14/2016 - 02/12/2017 KNEE ARTHROPLASTY 2015 - Right 2016 SHOULDER REPLACEMENT, 02/14/1992 - Right TOTAL, REVERSE 02/12/1993 CERVICAL LAMINECTOMY 1982 CYSTO, URETEROSCOPY 11/23/2017 N/A Procedure: C YSTOSCOPY, RIGHT URETEROSCO PY W/ RIGHT RETROGRAD E PYELOGRAM, RIGHT LITHOTRIPSY, RIG HT DOUBLE J STENT PLACEMEN T; Surgeon: Addi Arteaga MD; Location: [facility] IN OR; Service: Urology ; Laterality: N/A; Medical devices from this surgery are in t he Implants section . EXTRACORPOREAL SHOCKWAVE 12/28/2017 N/A Procedu re: LEFT ESWL; LITHOTRIPSY (ESWL) Surgeon: Addi Andrews MD; Location: [facility] MAIN OR; Se rvice: Urology; Latera lity: N/A; PROSTATIC HIFU 04/19/2019 N/A Procedure: PROST ATIC HIFU; Surgeon: Addi Arteaga MD; Locatio n: [facility] MAIN OR; Servic e: Urology; Latera lity: N/A; CYSTOSCOPY, WITH TURP 03/07/2019 N/A Procedure: CYSTOSCOPY, WITH TURP; Surg jd: Addi Arteaga MD; Locatio n: [facility] MAIN OR; Servic e: Urology; Latera lity: N/A; Medical History Medical History Date Comments BPH (benign prostatic hypertrophy) Hypertension HLD (hyperlipidemia) GERD (gastroesophageal reflux disease) CHF (congestive heart failure) (HCC) 2013 nev er been hospitalized Osteoporosis Kidney stones 09/01/[address] Mimi Magana( cardio) [phone]-last se en 02/22/2019 for clearance-had EKG/ec ho/stress test Does not exercise no chest pain or sob on stairs History of mild heart attack states was told that he probably had a "mild heart attack ." from the EKG History of fainting stood up too fast fr om sleeping more than 3 years ago?201 7 History of hepatitis B 2000 treated CKD (chronic kidney disease) Dr. Kevin Skaggs(systems accountant)-will see on 03/04/2019 for clearance Prostate cancer (HCC) DX 01/2019 Chronic back pain Localized swelling of both lower legs la six prn Arthritis Family History Medical History Relation Name Comments Cancer Father No Known Problems Mother Relation Name Status Comments Father Mother Social History Tobacco Use Types Packs/Day Years Used Date Never Smoker Smokeless Tobacco: Never Used Alcohol Use Drinks/Week oz/Week Comments Yes seldom Sex Assigned at Date Recorded Not on file Last Filed Vital Signs Vital Sign Reading Time Taken Comments Blood Pressure 110/79 04/24/2019 8:59 AM CDT Pulse 98 04/24/2019 8:59 AM CDT Temperature 34.8 C (94.7 F) 04/19/2019 10:21 AM [employer] Respiratory Rate 15 04/19/2019 10:21 AM [employer] Oxygen Saturation 96% 04/19/2019 10:21 AM [employer] Inhaled Oxygen Concentration - - Weight 102 kg (224 lb) 04/24/2019 8:59 AM CDT Height 182.9 cm (6') 04/24/2019 8:59 AM CDT Body Mass Index 30.38 04/24/2019 8:59 AM CDT Plan of Treatment Health Maintenance Due Date Last Done Comments COVID-19 VACCINE (#1) 1960 COLONOSCOPY SCREENING 02/12/1994 SHINGLES VACCINES (#1) 02/12/1994 INFLUENZA VACCINE 09/14/2019 02/04/2014 65+ PNEUMOCOCCAL VACCINE Completed 02/04/2014 Implants Implanted Type Area Certified Tower Climber Device Shelf Model / Identifier Expiration Serial / Date Lot Stent Contour Injection 6x28 - [id number] Surgical N/A: N/A BSC U ROLOGY 08/24/2019 [id number] / Implanted: Qty: 1 on 11/23/2017 by Addi Lemons MD at [facility] Stents / [id number] Procedures Procedure Name Priority Date/Time Associated Comments Diagnosis PSA, ULTRASENSITIVE Routine 11/01/2019 10:11 Prostate cancer R esults for this AM CDT (HCC) procedure are i n the results section. [id number] Routine 07/01/2019 12:03 BPH with Results for this PM CDT obstruction/lower procedure are in urinary tract the results symptoms section. POC UROFLOWMETRY Routine 07/01/2019 12:03 BPH with Results for this PM CDT obstruction/lower procedure are in urinary tract the results symptoms section. PSA, ULTRASENSITIVE Routine 06/19/2019 11:01 Prostate cancer R esults for this AM CDT (HCC) procedure are i n the results section. NJ AN ELECTIVE Routine 04/19/2019 8:18 Results f or this ENDOTRACHEAL AIRWAY AM [employer] procedur e are in the results section. PROSTATIC HIFU 04/19/2019 7:49 Prostate cancer AM [employer] (HCC) Case Notes HIFU Special Needs HIFU CBC HEMOGRAM STAT 04/19/2019 7:07 Results for this AM [employer] procedure are i n the results section. ESTIMATED GFR STAT 04/19/2019 7:06 Results fo r this AM [employer] procedure are i n the results section. BASIC METABOLIC PANEL STAT 04/19/2019 7:06 Re sults for this AM [employer] procedure are i n the results section. URINE CULTURE Routine 04/12/2019 9:38 Hematuria, unspecified Results for this AM [employer] type procedure are i n the results section. HEMOGLOBIN A1C Routine 04/12/2019 9:27 Preop cardiovascular R esults for this AM [employer] exam procedure are i n the results section. PT AND PTT Routine 04/12/2019 9:27 Preop cardiovascular Res ults for this AM [employer] exam procedure are i n the results section. COMPREHENSIVE Routine 04/12/2019 9:27 Enlarged prostate with Results for this METABOLIC PANEL AM [employer] urinary obstruction proce dure are in the results section. [id number] Routine 03/20/2019 12:20 Prostate cancer (HCC) Results for this PM [employer] BPH with procedure are i n obstruction/lower the result s urinary tract symptoms secti on. SURGICAL PATHOLOGY Routine 03/07/2019 8:21 Resul ts for this REQUEST PM [employer] procedure are i n the results section. NJ AN ELECTIVE Routine 03/07/2019 2:40 Results f or this SUPRAGLOTTIC AIRWAY PM [employer] procedur e are in the results section. CYSTOSCOPY, WITH TURP 03/07/2019 2:20 BPH with urinar y PM [employer] obstruction Special Needs REQ 1300 START POC PANEL Routine 03/07/2019 12:18 Results for this PM [employer] procedure are i n the results section. ESTIMATED GFR Routine 03/07/2019 12:18 Results fo r this PM [employer] procedure are i n the results section. URINE CULTURE Routine 02/28/2019 9:45 Hematuria, unspecified Results for this AM [employer] type procedure are i n the results section. HIV 1/2 Routine 02/28/2019 9:24 Preop cardiovascular Res ults for this ANTIGEN/ANTIBODY, AM [employer] exam procedure are in FOURTH GENERATION the result s W/RFL section. HEMOGLOBIN A1C Routine 02/28/2019 9:24 Preop cardiovascular R esults for this AM [employer] exam procedure are i n the results section. PT AND PTT Routine 02/28/2019 9:24 Preop cardiovascular Res ults for this AM [employer] exam procedure are i n the results section. COMPREHENSIVE Routine 02/28/2019 9:24 BPH with Results fo r this METABOLIC PANEL AM [employer] obstruction/lower procedu re are in urinary tract symptoms the r esults section. CBC WITH PLATELET AND Routine 02/28/2019 9:24 BPH with Re sults for this DIFFERENTIAL AM [employer] obstruction/lower procedure are in urinary tract symptoms the r esults section. URINE CULTURE Routine 02/22/2019 3:52 Results fo r this PM [employer] procedure are i n the results section. after 02/16/2019 Results PSA, ultrasensitive (11/01/2019 10:11 AM CDT)Only the most recent of2 results within the time period is included. PSA, ultrasensitive 0.897 0.000 - 4.000 [facility] Comment: ng/mL Dima ECLIA methodology. According to the [place] [employer], Seru m PSA should decrease and remain at undetectable levels after radic al prostatectomy. The AUA defines biochemical recurrence as an initial PSA value 0.200 ng/mL or greater followed by a subsequ ent confirmatory PSA value 0.200 ng/mL or greater. Values obtained with different assay methods or kits c annot be used interchangeably. Results cannot be interpreted as abso lute evidence of the presence or absence of malignant disease. Specimen Blood Narrative Performed At Performed at: 01 - [facility] [address] [place] [id number] Magistrate: Eric Zuluaga MD, Phone: [phone] Performing Organization Address City/State/ZIP Code Phon e Number [facility] POC BLADDER SCAN/PVR (07/01/2019 12:03 PM CDT)Only the most recent of2 results within the time period is included. Pathologist Sig nature Result 0 mlComment: bladder scan Specimen Urine POC uroflowmetry (07/01/2019 12:03 PM CDT) Pathologist Sig nature Flow rate 180 MLComment: urine flow rate ml/sec results Specimen Urine Impressions Performed At Peak Flow: 20 ml/s Mean Flow: 6 ml/s Voiding TIME: 31 sec Flow TIME: 26 sec Time TO PEAK FLOW:15 sec VOIDED VOLUME: 180 ml Residual volume: 0 ml Airway (04/19/2019 8:18 AM [employer]) Narrative Performed At Olga Lidia Baez 04/19/2019 8:18 AM Airway Date/Time: 04/19/2019 7:58 AM Performed by: Olga Lidia Baez Authorized by: Anibal Rayo DO Location: OR Urgency: Elective Difficult Airway: No Resident/AIR TUCKER/AA: Olga Lidia Baez Performed by: resident/AIR TUCKER/AA Preoxygenated with 100% O2: Yes Mask Ventilation: Easy mask Final Airway Type: Endotracheal airway Final Endotracheal Airway: ETT Cuffed: Yes Technique Used: Direct laryngoscopy Insertion Site: Oral Blade Type: Berrios Laryngoscope Blade/Videolaryngoscope Flaco de Size: 2 ETT Size (mm): 8.0 Cuff at minimum occlusion pressure: Yes Measured from: Teeth ETT to Teeth (cm): 21 Placement Verified by: CO2 detection, di rect visualization and equal breath sounds Laryngoscopic view: Grade I - full vie w of glottis Rapid Sequence Induction (RSI): No Modified RSI: No Number of Attempts at Approach: 1 Atraumatic intubation, dentition unchanged CBC hemogram (04/19/2019 7:07 AM [employer]) Pathologist Sig nature WBC 7.28 4.50 - 11.00 k/uL [facility] RBC 4.41 4.40 - 6.00 m/uL [facility] HGB 11.4 (L) 14.0 - 18.0 g/dL [facility] HCT 37.7 (L) 41.0 - 51.0 % [facility] MCV 85.5 82.0 - 100.0 fL [facility] MCH 25.9 (L) 27.0 - 34.0 pg [facility] MCHC 30.2 (L) 31.0 - 37.0 g/dL [facility] RDW - SD 47.3 37.0 - 55.0 fL [facility] MPV 10.8 8.8 - 13.2 fL [facility] Platelet count 189 150 - 400 k/uL [facility] Nucleated RBC 0.00 /100 WBC [facility] Specimen Blood Performing Organization Address [facility] Phon e Number [facility] DEPARTMENT OF PATHOLOGY AND [address] [place] [address] [phone] [address] Estimated GFR (04/19/2019 7:06 AM [employer])Only the most recent of2 resultswithin the time period is included. Estimated GFR 52 (A) mL/min/1.73 [facility] Comment: m2 HOSPITAL Catergory Units Interpretation G1 >=90 Normal or high G2 60-89 Mildly decreased G3a 45-59 Mildly to moderately decreas ed G3b 30-44 Moderately to severely decre ased G4 15-29 Severely decreased G5 <15 Kidney failure The eGFR was calculated using the Chronic Kidney Disea se Epidemiology Collaboration (CKD-EPI) equation. Interpretation is based on recommendations of the National Kidney Foundation-Kidney Disease Outcomes Jovanni lity Initiative (NKF-KDOQI) published in 2014. Specimen Plasma specimen Performing Organization Address City/[facility] Phon e Number [facility] DEPARTMENT OF PATHOLOGY AND [address], [place] [phone] [address] Basic metabolic panel (04/19/2019 7:06 AM [employer]) Pathologist Sig nature Sodium 142 135 - 148 mEq/L [facility] Potassium 4.8 3.5 - 5.0 mEq/L [facility] Chloride 104 98 - 112 mEq/L [facility] CO2 26 24 - 31 mEq/L [facility] Anion gap 12@ANIO 7 - 15 mEq/L [facility] BUN 15 8 - 23 mg/dL [facility] Creatinine 1.33 (H) 0.70 - 1.20 mg/dL [facility] Glucose 107 (H) 65 - 99 mg/dL [facility] Calcium 8.8 8.8 - 10.2 mg/dL [facility] Specimen Plasma specimen Performing Organization Address City/[facility] Phon e Number [facility] DEPARTMENT OF PATHOLOGY AND [address] [place] [phone] GENOMIC MEDICINE [address] [address] Urine culture (04/12/2019 9:38 AM [employer])Only the most recent of3 resultswithin the time period is included. Pathologist Sig nature Urine culture No growth [facility] Specimen Urine Narrative Performed At Performed at: 01 - [facility] [address] [place] [id number] Magistrate: Eric Zuluaga MD, Phone: [phone] Performing Organization Address City/[facility] Phon e Number [facility] PT and PTT (04/12/2019 9:27 AM [employer])Only the most recent of2 resultswithin the time period is included. INR 1.0 0.8 - 1.2 [facility] Comment: Reference interval is for non-anticoagulated patients. Suggested INR therapeutic range for Vitamin K antagonist therapy: Standard Dose (moderate intensity therapeutic range): 2.0 - 3.0 Higher intensity therapeutic range 2.5 - 3.5 Prothrombin time 10.5 9.1 - 12.0 [facility] sec aPTT 26 24 - 33 sec [facility] Comment: This test has not been validated for monitoring unfrac tionated heparin therapy. aPTT-based therapeutic ranges for unfractiona benedicto heparin therapy have not been established. For general guideli michelle on Heparin monitoring, refer to the [facility] Directory of Services. Specimen Blood Narrative Performed At Performed at: - [facility] [place] [facility] [address] [place], [place] [id number] [address] Magistrate: Eric Zuluaga MD, Phone: [phone] Performing Organization Address [facility] e Number [facility] Hemoglobin A1c (04/12/2019 9:27 AM [employer])Only the most recent of2 resultswithin the time period is included. Pathologist Sig nature Hemoglobin A1C 5.5 4.8 - 5.6 % [facility] Comment: Prediabetes: 5.7 - 6.4 Diabetes: >6.4 Glycemic control for adults with diabetes : <7.0 Specimen Blood Narrative Performed At Performed at: - [facility] [place], [place] [id number] [address] Magistrate: Eric Zuluaga MD, Phone: [phone] Performing Organization Address [facility] e Number [facility] Comprehensive metabolic panel (04/12/2019 9:27 AM [employer])Only the most recent of2 resultswithin the time period is included. Pathologist [facility] Glucose 98 65 - 99 mg/dL [facility] BUN 22 8 - 27 mg/dL [facility] Creatinine 1.33 (H) 0.76 - 1.27 [facility] mg/dL EGFR Non-Afr. 52 (L) >59 [facility] [place] mL/min/1.73 EGFR 60 >59 [facility] [place] mL/min/1.73 BUN/creatinine ratio 17 10 - 24 [facility] Sodium 141 134 - 144 [facility] mmol/L Potassium 5.3 (H) 3.5 - 5.2 [facility] mmol/L Chloride 106 96 - 106 [facility] mmol/L CO2 23 20 - 29 mmol/L [facility] Calcium 8.9 8.6 - 10.2 [facility] mg/dL Protein 5.9 (L) 6.0 - 8.5 g/dL [facility] Albumin, S 3.9Comment: 3.7 - 4.7 g/dL [facility] Please note reference interval change Globulin, total 2.0 1.5 - 4.5 g/dL [facility] Albumin/globulin 2.0 1.2 - 2.2 [facility] ratio Total bilirubin 0.4 0.0 - 1.2 [facility] mg/dL Alkaline phosphatase 71 39 - 117 IU/L [facility] AST 12 0 - 40 IU/L [facility] ALT 9 0 - 44 IU/L [facility] Specimen Blood Narrative Performed At Performed at: [facility] [place] [facility] [address] [place], [place] [phone] Magistrate: Eric Zuluaga MD, Phone: [phone] Performing Organization Address City/State/ZIP Code Phon e Number [facility] Surgical pathology request (03/07/2019 8:21 PM [employer]) [facility] DEPARTMENT OF PATHOLOGY AND GENOMIC MEDICINE Surgical pathology See link below [facility] DEPARTMENT OF report for PDF Lab PATHOLOGY AND Report GENOMIC MEDICINE Result status This is Final [facility] DEPARTMENT OF Report for PATHOLOGY AND [id number] GENOMIC MEDICINE Specimen Performing Organization Address City/[facility] Phon e Number [facility] DEPARTMENT OF PATHOLOGY AND [address], [place] [phone] GENOMIC MEDICINE Airway (03/07/2019 2:40 PM [employer]) Narrative Performed At Amber Chawla CRNA 03/07/2019 2:40 PM Airway Date/Time: 03/07/2019 2:40 PM Performed by: Amber Chawla CRNA Authorized by: Ricardo Brown MD Location: OR Urgency: Elective Difficult Airway: No Anesthesiologist: Ricardo Brown MD Resident/AIR TUCKER/AA: Amber Chawla CRNA Preoxygenated with 100% O2: Yes C-spine Precautions Maintained Throughou t: Yes Mask Ventilation: Not attempted Final Airway Type: Supraglottic airway Final LMA: I-Gel LMA Size: 5 Number of Attempts at Approach: 1 ATRAUMATIC POC panel (03/07/2019 12:18 PM [employer]) POC sodium 139 135 - 148 [facility] mmol/L [facility] POC potassium 4.3 3.5 - 5.0 [facility] mmol/L [facility] POC chloride 106 99 - 109 [facility] mmol/L [facility] POC CO2 26 24 - 31 mmol/L [facility] POC glucose 97 65 - 99 mg/dL [facility] POC BUN 18 8 - 24 mg/dL [facility] POC creatinine 1.5 (H) 0.7 - 1.2 [facility] mg/dl [facility] POC hematocrit 38 (L) 41 - 51 % [facility] POC anion gap 12 8 - 20 mmol/L [facility] Comment: HOSPITAL Insecticide Mixer Name: Kike Hernandez Device ID: [id number] Specimen Performing Organization Address City/[facility] Phon e Number [facility] DEPARTMENT OF PATHOLOGY AND [address] [place] [phone] GENOMIC MEDICINE [address] [address] HIV 1/2 ANTIGEN/ANTIBODY, FOURTH GENERATION W/RFL (02/28/2019 9:24 AM [employer]) Pathologist Sig nature HIV AG/AB 4th gen Non Reactive Non Reactive [facility] Specimen Narrative Performed At Performed at: - [facility] [address] [place] [address] [id number] Magistrate: Eric Zuluaga MD, Phone: [phone] Performing Organization Address City/[facility] Phon e Number [facility] CBC with platelet and differential (02/28/2019 9:24 AM LABORER SHELLFISH PROCESSING) WBC 7.9 3.4 - 10.8 [facility] x10E3/uL RBC 5.06 4.14 - 5.80 [facility] x10E6/uL HGB 12.9 (L) 13.0 - 17.7 [facility] g/dL HCT 42.2 37.5 - 51.0 % [facility] MCV 83 79 - 97 fL [facility] MCH 25.5 (L) 26.6 - 33.0 pg [facility] MCHC 30.6 (L) 31.5 - 35.7 [facility] g/dL RDW 15.1Comment: 11.6 - 15.4 % [facility] Please note reference interval change Platelet count 236 150 - 450 [facility] x10E3/uL Neutrophils 50 Not Estab. % [facility] Lymphocytes 41 Not Estab. % [facility] Monocytes 8 Not Estab. % [facility] Eosinophils 1 Not Estab. % [facility] Basophils 0 Not Estab. % [facility] Neutrophils, absolute 3.9 1.4 - 7.0 [facility] x10E3/uL Lymphocytes, absolute 3.2 (H) 0.7 - 3.1 [facility] x10E3/uL Monocytes, absolute 0.7 0.1 - 0.9 [facility] x10E3/uL Eosinophils, absolute 0.1 0.0 - 0.4 [facility] x10E3/uL Basophils, absolute 0.0 0.0 - 0.2 [facility] x10E3/uL Immature granulocytes 0 Not Estab. % [facility] Immature grans (abs) 0.0 0.0 - 0.1 [facility] x10E3/uL Specimen Blood Narrative Performed At Performed at: 01 - [facility] [place] [facility] [address] [place], [place] [id number] Magistrate: Eric Zuluaga MD, Phone: [phone] Performing Organization Address City/State/ZIP Code Phon e Number [facility] after 02/16/2019 Insurance Payer Benefit Plan / Subscriber ID Effective Dates Phone Addre ss Type Group BCBS BCBS CHOICE [id number] 2015-Present PPO PPO/FEDERAL EMPL PPO MEDICARE MEDICARE PART A [id number] 2009-Present [place], [place] Medicare AND B Advance Directives For more information, please contact: [phone] Type Date Recorded 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
--- OUTSIDE RECORDS SUMMARY | 2020-02-17 10:18 | XMS REPORT | Continuity of Care Document ---
:1945 Author Organization [facility] t Address [address] [place] [address] Care Team Providers Name Role Phone [facility] Primary Care Physician Unavailable Wes REDDING Attending Clinician Unavailable Sim GRACIA Attending Clinician Stephanie GRACIA, N. Attending Clinician Perri OTTO Attending Clinician Oralia Wolf APRN Attending Clinician Stephanie GRACIA Attending Clinician Aaliyah MALDONADO Attending Clinician STEPHANIE Admitting Clinician Unavailable Payers Payer Name Policy Type Policy Effective Date Expiration Date Sour ce Number BCBSBCBS CHOICE [id number] 2015 [place] PPO/FEDERAL EMPL 00:00:00 Dalton malone [id number] 2015 -[facility] [place] MEDICAREMEDICARE PART [id number] Augustus Herrera AND 00:00:00 [place] [id number] 2009- [place] Condition Condition Condition Status Onset Resolution Last Treating Co mments Source Name Details Category Date Date Treatment Clinician Date 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 03-07 [facility] obstructio obstructio 00:00: st n n 00 Kidney Kidney Disease Active [place] stones stones 08-31 Methodi 00:00: st 00 Benign 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 4-13 Me thodi r r 00:00: st prostatic prostatic 00 hyperplasi hyperplasi a without a without lower lower urinary urinary tract tract symptoms symptoms 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 Allergies, Adverse Reactions, Alerts Allergy Allergy Status Severity Reaction(s) Onset Inactive Treating Comm ents Source Name Type Date Date Clinician No Known DA Active [facility] All[facility]ie 10-07 [place] [facility] 00:[facility]: [facility] Family History Family Member Diagnosis Comments Start Date Stop Date Source [facility] No Known Problems Gerry ston Quaker Social History Social Habit Start Date Stop Date Quantity Comments Source Sex Assigned At [facility] ethodi Tobacco use and 2019-05-20 2019-05-20 Never used [facility] ethodi exposure 00:00:00 00:00:00 Alcohol intake 2019-05-20 2019-05-20 Current drinker [place] [facility] 00:00:00 00:00:00 of alcohol (finding) Alcohol Comment 2019-02-28 2019-02-28 seldom [facility] ethodi 00:00:00 00:00:00 Smoking Status Start Date Stop Date Source Never smoker [facility] t Medications Ordered Filled Start Stop Current Ordering Indication Dosage Frequency Signature Comments Components Source Medication Medication Date Date Medication? Clinician (SIG) Name Name FUROSEMIDE Yes Q24H Take by [place] ORAL 4-06 mouth Methodi 16:29: daily as st 46 needed. tamsulosin 2020- No .4mg QD Take 1 [place] (FLOMAX) 3- 03-26 capsule [facility] 0.4 mg 00:00: 23:59 (0.[address] capsule 00 :00 total) by mouth daily with dinner for 15 days. docusate 2020- No 100mg Q.5D Take 1 [place] sodium 04-18 capsule [facility] (COLACE) 00:00: 23:59 ([address] 100 MG 00 :00 total) by capsule mouth 2 (two) times a day for 30 days. phenazopyri 2020- No 100mg Q.[id number] Take 1 [place] dine 04-1816 [id number] tablet Method i (PYRIDIUM) 00:00: 23:59 3D ([address] 100 MG 00 :00 total) by tablet mouth 3 (three) times a day as needed for bladder spasms (burning with urination) for up to 10 days. traMADoL 2019- No acute pain 50mg Q6H Take 1 [place] (ULTRAM) 50 04-18 tablet (50 M ethodi mg tablet 00:00: 23:59 mg total) st 00 :00 by mouth every 6 (six) hours as needed for moderate pain or severe pain for up to 5 doses .acute pain. sulfamethox 2019- No 1{tbl} Q.5D Take 1 [place] azole-trime 04-18 tablet by In thodi thoprim 00:00: 23:[address] (BACTRIM 00 :00 (two) DS) 800-160 times a mg per day for 5 tablet days. docusate 2019- 2020- No 100mg Q.5D Take 1 [place] sodium 03-08 capsule [facility] (COLACE) 00:00: 23:59 ([address] 100 MG 00 :00 total) by capsule mouth 2 (two) times a day for 30 days. phenazopyri 2020- No 100mg Q.13232163 Take 1 [facility] 03-08 [id number] tablet Method i (PYRIDIUM) 00:00: 23:59 3D ([address] 100 MG 00 :00 total) by tablet mouth 3 (three) times a day as needed for bladder spasms for up to 5 days. ciprofloxac 2019- 2020- No 500mg Q.5D Take 1 abby in (CIPRO) 03-08 tablet Method i 500 MG 00:00: 23:59 ([address] tablet 00 :00 total) by mouth 2 (two) times a day for 5 days. simvastatin Yes 20mg QD Take 20 mg [place] (ZOCOR) 20 02-21 by mouth Metho di MG tablet 00:00: nightly. st 00 betamethaso 2019- No [place] ne 10-25 [facility] dipropionat 00:00: 00:00 st e 00 :00 (DIPROLENE) 0.05 % cream fluorouraci 2019- No [place] (EFUDEX) 10-25 [facility] 5 % cream 00:00: 00:00 st 00 :00 gabapentin 2019- No [place] (NEURONTIN) 10-22 [facility] 300 mg 00:00: 00:00 st capsule 00 :00 traZODone 2016-02 Yes 150mg QD Take 150 [place] (DESYREL) 2-05 mg by Methodi 150 MG 00:00: mouth st tablet 00 nightly. alendronate 2019- No 70mg Q1W Take 70 mg [place] (FOSAMAX) 04-28 by mouth Metho di 70 MG 00:00: 00:[address] tablet 00 :00 days. Q Mondays clonAZEPAM Yes 1mg QD Take 1 mg [place] (KlonoPIN) 14 by mouth Metho di 1 MG tablet 00:00: nightly. st 00 metoprolol Yes 25mg QD Take 25 mg [place] succinate 04-23 by mouth Method i XL 00:00: daily. st (TOPROL-XL) 00 25 MG 24 hr tablet sucralfate Yes 1g QD Take 1 g [place] (CARAFATE) 09 by mouth Metho di 1 gram 00:00: nightly. st tablet 00 imipramine Yes 150mg QD Take 150 [place] (TOFRANIL) 1-15 mg by Methodi 50 MG 00:00: mouth st tablet 00 nightly. omeprazole Yes 20mg QD Take 20 mg [place] OTC 3-24 by mouth Methodi (PriLOSEC 00:00: nightly. st OTC) 20 MG 00 EC tablet Vital Signs Vital Name Observation Time Observation Value Comments Source Systolic blood 2019-04-24 08:59:00 110 mm[Hg] [place] pressure Diastolic blood 2019-04-24 08:59:00 79 mm[Hg] [place] pressure Heart rate 2019-04-24 08:59:00 98 /min [place] [facility] Body height 2019-04-24 08:59:00 182.9 cm [place] [facility] Body weight 2019-04-24 08:59:00 101.606 kg [place] [facility] BMI 2019-04-24 08:59:00 30.38 kg/m2 [place] [facility] Body temperature 2019-04-19 10:21:00 34.83 Noris [place] Respiratory rate 2019-04-19 10:21:00 15 /min [place] Oxygen saturation in 2019-04-19 10:21:00 96 /min [place] [facility] Arterial blood by Pulse oximetry Procedures Procedure Date / Time Performing Clinician Source Performed PSA, ULTRASENSITIVE 2019-11-01 10:11:00 [facility] Harjeet Good POC UROFLOWMETRY 2019-07-01 12:03:00 [facility] thodist Addi Good [id number] 2019-07-01 12:03:00 [facility] Met jonathan Good PSA, ULTRASENSITIVE 2019-06-19 11:01:00 [facility] Harjeet Good WI AN ELECTIVE 2019-04-19 08:18:07 Olga Lidia Baez ethodist ENDOTRACHEAL AIRWAY PROSTATIC HIFU 2019-04-19 07:49:00 [facility] Met jonathan Good CBC HEMOGRAM 2019-04-19 07:07:00 Lucy Wolf ethodist BASIC METABOLIC PANEL 2019-04-19 07:06:00 Lucy Wolf ESTIMATED GFR 2019-04-19 07:06:00 Lucy Wolf ethodist URINE CULTURE 2019-04-12 09:38:00 [facility] Met jonathan Good COMPREHENSIVE METABOLIC 2019-04-12 09:27:00 Gerry Arteaga Quaker PANEL Addi Good PT AND PTT 2019-04-12 09:27:00 [facility] Met hodist Addi N. HEMOGLOBIN A1C 2019-04-12 09:27:00 [facility] Met jonathan Addi N. [id number] 2019-03-20 12:20:00 [facility] Met jonathan [place] N. SURGICAL PATHOLOGY REQUEST 2019-03-07 20:21:00 [facility] Quakerminal [place] N. [place] AN ELECTIVE 2019-03-07 14:40:23 Amber Chawla ethodist SUPRAGLOTTIC AIRWAY CYSTOSCOPY, WITH TURP 2019-03-07 14:20:00 Gonzalez-Laina Cruz on Quaker Addi N. ESTIMATED GFR 2019-03-07 12:18:00 [facility] Met jonathan [place] N. POC PANEL 2019-03-07 12:18:00 [facility] Met jonathan Stubbsipe N. URINE CULTURE 2019-02-28 09:45:00 [facility] Met jonathan Morgan. CBC WITH PLATELET AND 2019-02-28 09:24:00 Gonzaelz-Laina Cruz on Quaker DIFFERENTIAL Addi N. COMPREHENSIVE METABOLIC 2019-02-28 09:24[facility]00 [facility] Addi N. PT AND PTT 2019-02-28 09:24:00 [facility] Met jonathan Stubbsipe N. HEMOGLOBIN A1C 2019-02-28 09:24:00 [facility] Met jonathan Addi N. HIV 1/2 ANTIGEN/ANTIBODY, 2019-02-28 09:24:00 Gonzalez-Maria Cruz FOURTH GENERATION W/RFL Addi N. URINE CULTURE 2019-02-22 15:52:00 [facility] Met jonathan Stubbsipe N. Plan of Care Planned Activity Planned Date Details Comments Source Future Scheduled 2019-09-14 INFLUENZA VACCINE Elaine morgan [facility] Test 00:00:00 [code = INFLUENZA VACCINE] Future Scheduled 1994-02-12 COLONOSCOPY SCREENING Augustus mora Quaker Test 00:00:00 [code = COLONOSCOPY SCREENING] Future Scheduled 1994-02-12 SHINGLES VACCINES Elaine morgan [facility] Test 00:00:00 (#1) [code = SHINGLES VACCINES (#1)] Future Scheduled 1961 COVID-19 VACCINE (#1) Ho abby Quaker Test 00:00:00 [code = COVID-19 VACCINE (#1)] Encounters Start End Encounter Admission Attending Care Care Encounter Source Date/Time Date/Time Type Type Clinicians Facility Department ID 2019-09-09 2019-09-09 Office ADELFO Montemayor [id number] 13:46:31 14:36:37 Visit Hi AMBULATOR [id number] Y [id number] 2019-07-01 2019-07-01 Outpatient [facility] [id number] [place] 00:00:00 00:00:00 OVAL, [address] 2019-05-20 2019-05-20 Outpatient [facility] [id number] [place] 00:00:00 00:00:00 OVAL, [address] 2019-04-24 2019-04-24 Outpatient [facility] [id number] [place] 00:00:00 00:00:00 OVAL, [address] 2019-04-19 2019-04-19 Outpatient [facility] [id number] [place] 00:00:00 00:00:00 OVAL, [address] 2019-04-12 2019-04-12 Outpatient [facility] [id number] [place] 00:00:00 00:00:00 OVAL, [address] 2019-04-12 2019-04-12 [facility] [id number] [place] 00:00:00 00:00:[address] 2019-03-07 2019-03-08 Outpatient [facility] [id number] [place] 00:00:00 00:00:00 OVAL, [address] 2019-01-23 2019-01-23 Outpatient [facility] [id number] [place] 00:00:00 00:00:00 OVAL, [address] 2019-01-23 2019-01-23 Outpatient [facility] [id number] [place] 00:00:00 00:00:00 OVAL, [address] 2018-11-26 2018-11-26 [facility] [id number] [place] 00:00:00 00:00:00 OVAL, 284 Method i ADDI 2018-11-12 2018-11-12 Outpatient [facility] [id number] [place] 00:00:00 00:00:00 OVAL, 168 Method i ADDI 2018-11-12 2018-11-12 Outpatient [facility] [id number] [place] 00:00:00 00:00:00 OVAL, 167 Method i ADDI 2016-09-14 2016-09-14 Outpatient C [facility] [id number] [facility] 10:25:00 10:25:00 Results Test Description Test Time Test Comments Results Result Comments Source PSA, ultrasensitive 2019-11-02 10:10:00 Test Item Value Reference Range Interpretation Comme nts PSA, ultrasensitive (test 0.897 ng/mL 0-4 Ro agnes ECLIA methodology.According code = 02086-2) to the [facility] Urological Association, Se rum PSA shoulddecrease and remain at undetectable le vels after radicalprostate ctomy. The AUA defines biochem ical recurrence as an initialPSA v alue 0.200 ng/mL or greater foll owed by a subsequentconfi rmatory PSA value 0.200 ng/mL or greater.Values obtained with d ifferent assay methods or kits cannot be usedinterchange ably. Results cannot be inter preted as absolute evidenceof the presence or absence of tania gnant disease. OZZIE (test code = OZZIE) Performed at: [address] [place] [address] [id number] Director: Eric Zuluaga MD, Phone: [phone] [facility] [id number] 12:03:00 Test Item Value Reference Range Interpretation Comments Flow rate (test 180 ML ml/sec urine flow r ate code = 1402) results IMP (test code Peak Flow: 20 = IMP) ml/sMean Flow: 6 ml/sVoiding TIME: 31 secFlow TIME: 26 secTime TO PEAK FLOW:15 secVOIDED VOLUME: 180 ml Residual volume: [address] [facility] BLADDER SCAN/[id number] 12:03:00 Test Item Value Reference Range Interpretation Comments Result (test code = 2153) 0 ml bl adder scan [place] [facility] [id number] 08:22:41 Test Item Value Reference Range Interpretation Comments Sodium (test code = 2951-2) 142 135- 148 mEq/L Potassium (test code = 2823-3) 4.8 3.5- 5.0 mEq/L Chloride (test code = 2075-0) 104 98- 112 mEq/L CO2 (test code = 2027-9) 26 24- 31 mEq/L Anion gap (test code = 45870-1) 12@ANIO 7- 15 mEq/L BUN (test code = 3094-0) 15 mg/dL 8-23 Creatinine (test code = 2160-0) 1.33 mg/dL 0.7-1.2 H Glucose (test code = 2345-7) 107 mg/dL 65-99 H Calcium (test code = 88523-8) 8.8 mg/dL 8.8-10.2 Lab Interpretation (test code = Abnormal 44910-1) [place] MethodistEstimated [id number] 08:22:41 Test Item Value Reference Range Interpretation Comments Estimated GFR (test 52 mL/min/1.73 m2 A Caterg ory Units code = 5488) InterpretationG 1 >=90 Marii l or highG2 60-89 Mildly decrease dG3a 45-59 Mil dly to moderately decr ilkwiX4z 30-44 Moderately to s everely decreasedG4 15-29 Severe ly decreasedG5 <15 Kidney jana lureThe eGFR was calcul ated using the Chron ic Kidney Disease Epidemiology Collaboration ( CKD-EPI) equation. Interpretation is based on recommendati ons of the National Ki dney Foundation-Kidn ey Disease Outcome s Quality Initiat micki (NKF-KDOQI) pub lished in 2013. Lab Interpretation Abnormal (test code = 44145-9) Chon [id number] 08:18:07Olga Lidia Baez 04/19/2019 8:18 AMAirwayDate/Time: 04/19/2019 7:58 AMPerformed by: Olga Lidia BaezAuthorized by: Anibal Rayo DO Location: ORUrgency: ElectiveDifficult Airway: No Resident/ARTIST COLOR SEPARATION/AA: Olga Lidia BaezPerformed by: resident/ARTIST COLOR SEPARATION/AAPreoxygenated with 100% O2: Yes Mask Ventilation: Easy maskFinal Airway Type: Endotracheal airwayFinal Endotracheal Airway: ETTCuffed: Yes Technique Used: Direct laryngoscopyInsertion Site: OralBlade Type: MillerLaryngoscope Blade/Videolaryngoscope Blade Size: 2ETT Size (mm): 8.0Cuff at minimum occlusion pressure: Yes Measured from: TeethETT to Teeth (cm): 21Placement Verified by: CO2 detection, direct visualization and equal breath sounds Laryngoscopic view: Grade I - full view of glottisRapid Sequence Induction (RSI): No Modified RSI: No Number of Attempts at Approach: 1 Atraumatic intubation, [facility] 2019-04-19 07:26:36 Test Item Value Reference Range Interpretation Comments WBC (test code = 19259-6) 7.28 4.50- 11.00 k/uL RBC (test code = 05696-7) 4.41 m/uL 4.4-6 HGB (test code = 718-7) 11.4 g/dL 14-18 L HCT (test code = 4544-3) 37.7 % 41-51 L MCV (test code = 787-2) 85.5 fL 82-100 MCH (test code = 785-6) 25.9 pg 27-34 L MCHC (test code = 786-4) 30.2 g/dL 31-37 L RDW - SD (test code = 68982-9) 47.3 fL 37-55 MPV (test code = 27762-3) 10.8 fL 8.8-13.2 Platelet count (test code = 189 150- 400 k/uL 58162-5) Nucleated RBC (test code = 0.00 /100 WBC 66891-0) Lab Interpretation (test code = Abnormal 78645-6) [facility] [id number] 10:30:00 Test Item Value Reference Range Interpretation Comments Urine culture (test No growth code = 630-4) OZZIE (test code = OZZIE) Performed at: [address] [place] [address] [id number] Director: Eric Zuluaga MD, Phone: [phone] [place] MethodistComprehensive metabolic [id number] 10:09:00 Test Item Value Reference Range Interpretation Comments Glucose (test code = 98 mg/dL 65-99 2345-7) BUN (test code = 22 mg/dL 8-27 3094-0) Creatinine (test code 1.33 mg/dL 0.76-1.27 H = 2160-0) EGFR Non-Afr. 52 mL/min/1.73 >59 L [place]er (test code = 2775) EGFR 60 mL/min/1.73 >59 (test code = 2774) BUN/creatinine ratio 17 10-24 (test code = 3097-3) Sodium (test code = 141 mmol/L 609-417 5138-2) Potassium (test code 5.3 mmol/L 3.5-5.2 H = 2823-3) Chloride (test code = 106 mmol/L 96-106 2075-0) CO2 (test code = 23 mmol/L - 2028-9) Calcium (test code = 8.9 mg/dL 8.6-10.2 17403-8) Protein (test code = 5.9 g/dL 6-8.5 L 2885-2) Albumin, S (test code 3.9 g/dL 3.7-4.7 = 1751-7) Please note reference interval change Globulin, total (test 2.0 g/dL 1.5-4.5 code = 65782-1) Albumin/globulin 2.0 1.2-2.2 ratio (test code = 1759-0) Total bilirubin (test 0.4 mg/dL 0-1.2 code = 1975-2) Alkaline phosphatase 71 39- 117 IU/L (test code = 6768-6) AST (test code = 12 0- 40 IU/L 1920-8) ALT (test code = 9 0- 44 IU/L 1742-6) OZZIE (test code = OZZIE) Performed at: [facility] [address] [id number] Director: Eric Zuluaga MD, Phone: [phone] Lab Interpretation Abnormal (test code = 27772-2) [place] MethodistHemoglobin [id number] 10:09:00 Test Item Value Reference Range Interpretation Comments Hemoglobin A1C 5.5 % 4.8-5.6 (test code = Prediabetes: 5. 7 4548-4) - 6.4 Diabetes: >6.4 Glycemic control for adults with diabetes: <7.0 OZZIE (test code = Performed at: ) [address] [id number] Director: Eric Zuluaga MD, Phone: [phone] [place] MethodistPT and [id number] 10:09:00 Test Item Value Reference Range Interpretation Comments INR (test code = 1.0 0.8-1.2 Reference i nterval 6301-6) is for non-anticoagula benedicto patients.Sugges benedicto INR therapeutic range for Vitam in [facility] the rapy: Standard Dose (moderate inten sity therapeutic ran ge): 2.0 - 3.0 Higher intensit y therapeutic ran ge 2.5 - 3.5 Prothrombin time 10.5 9.1- 12.0 sec (test code = 5902-2) aPTT (test code = 26 24- 33 sec This test has not 92760-2) been validated for monitoring unfractionated heparintherapy. aPTT-based therapeutic ran ges for unfractiona benedicto heparintherapy have not been established. Fo r general guideli michelle onHeparin monitoring, ref er to the [facility] Directory of Services. OZZIE (test code = Performed at: OZZIE) - [address] [id number] Director: Eric Zuluaga MD, Phone: [phone] [place] MethodistSurgical pathology [id number] 13:04:57 Test Item Value Reference Range Interpretation Comments Case number (test code = [id number]) Surgical pathology See link below for report (test code = PDF Lab Report 2255) Result status (test code This is Final Report = [id number]) for [id number] [place] AamwjzscgPdnnog2900-84-18 14:40:23CuAmber valero CRNA 03/07/2019 2:40 PMAirwayDate/Time: 03/07/2019 2:40 PMPerformed by: Amber Chawla CRNAAuthorized by: Ricardo Brown MD Location: ORUrgency: ElectiveDifficult Airway: No Anesthesiologist: Ricardo Brown MDResident/ARTIST COLOR SEPARATION/AA: Amber Chawla CRNAPreoxygenated with 100% O2: Yes C- spine Precautions Maintained Throughout: Yes Mask Ventilation: Not att emptedFinal Airway Type: Supraglottic airwayFinal LMA: I-GelLMA Size: 5Number of Attempts at Approach: 1 ATRAUMATICSiloam [place] [facility] [id number] 13:02:16 Test Item Value Reference Range Interpretation Comments POC sodium (test code = 139 mmol/L 614-546 6143-0) POC potassium (test 4.3 mmol/L 3.5-5 code = 6298-4) POC chloride (test code 106 mmol/L 99-109 = 2069-3) POC CO2 (test code = 26 mmol/L 24-31 29080-0) POC glucose (test code 97 mg/dL 65-99 = 2339-0) POC BUN (test code = 18 mg/dL 8-24 6299-2) POC creatinine (test 1.5 mg/dl 0.7-1.2 H code = 43672-8) POC hematocrit (test 38 % 41-51 L code = 4544-3) POC anion gap (test 12 mmol/L 8-20 House[facility] Home Name: code = 9063658) Kike Davenport ID: [id number] Lab Interpretation Abnormal (test code = 89323-5) [facility] with platelet and [id number] 10:10:00 Test Item Value Reference Range Interpretation Comments WBC (test code = 7.9 3.4- 10.8 6690-2) x10E3/uL RBC (test code = 5.06 4.14- 5.80 789-8) x10E6/uL HGB (test code = 12.9 g/dL 13-17.7 L 718-7) HCT (test code = 42.2 % 37.5-51 4544-3) MCV (test code = 83 fL 79-97 787-2) MCH (test code = 25.5 pg 26.6-33 L 785-6) MCHC (test code = 30.6 g/dL 31.5-35.7 L 786-4) RDW (test code = 15.1 % 11.6-15.4 788-0) Please note reference interval change Platelet count (test 236 150- 450 code = 777-3) x10E3/uL Neutrophils (test 50 % Not Estab. code = 770-8) Lymphocytes (test 41 % Not Estab. code = 736-9) Monocytes (test code 8 % Not Estab. = 5905-5) Eosinophils (test 1 % Not Estab. code = 713-8) Basophils (test code 0 % Not Estab. = 706-2) Neutrophils, absolute 3.9 1.4- 7.0 (test code = 751-8) x10E3/uL Lymphocytes, absolute 3.2 0.7- 3.1 H (test code = 731-0) x10E3/uL Monocytes, absolute 0.7 0.1- 0.9 (test code = 742-7) x10E3/uL Eosinophils, absolute 0.1 0.0- 0.4 (test code = 711-2) x10E3/uL Basophils, absolute 0.0 0.0- 0.2 (test code = 704-7) x10E3/uL Immature granulocytes 0 % Not Estab. (test code = 15928-1) Immature grans (abs) 0.0 0.0- 0.1 (test code = 94932-7) x10E3/uL OZZIE (test code = OZZIE) Performed at: - [facility] [id number] Director: Eric Zuluaga MD, Phone: [phone] Lab Interpretation Abnormal (test code = 72084-3) Chon CosbyHIV 1/2 ANTIGEN/ANTIBODY, FOURTH GENERATION [id number] 10:10:00 Test Item Value Reference Range Interpretation Comments HIV AG/AB 4th gen Non Reactive Non Reactive (test code = 86571-8) OZZIE (test code = Performed at: 01 - OZZIE) [facility] [address] [id number] Director: Eric Zuluaga MD, Phone: [phone] [place] Quaker
[2020-02-17 11:16] LABS: Absolute Lymphocytes (CBC) 0.8 K/uL (0.7-4.9); Basophils % 0.4 % (0-1.3); Hematocrit 40.5 % (39.6-49.0); MPV 9.4 fL (7.6-11.3); RBC Red Blood Cell Count 5.08 M/uL (4.33-5.43)
--- NOTE | 2020-02-17 11:17 | RAD REPORT ---
EXAM DESCRIPTION: RAD - Chest Single View - 02/17/2020 11:05 am CLINICAL HISTORY: weakness Chest pain. COMPARISON: Chest Pa And Lat (2 Views) dated 01/03/2017 FINDINGS: Portable technique limits examination quality. Mild bilateral interstitial lung opacities are present with increased linear opacity in the right sandy g base suspicious for pneumonia. Heart is upper limit normal in size. No displaced fractures.
[2020-02-17 11:19] LABS: Protime INR 1.14
--- NOTE | 2020-02-17 11:37 | EDPHYS ---
Physician Documentation [facility] Name: Deangelo Borges Jr Age: 75 yrs Sex: Male : 1945 Arrival Date: 02/17/2020 Time: 09:58 Bed 27 Private MD: Angus Barnett HPI: 02/16 12:56 This 75 yrs old Male presents to ER via Wheelchair with complaints of snw Decreased Appetite, Nausea, Dehydration. 12:56 The patient presents to the emergency department with nausea, vomiting, diarrhea. snw Onset: The symptoms/episode began/occurred gradually, 1 week(s) ago, and became persistent. Possible causes: unknown. The symptoms are aggravated by nothing. The symptoms are alleviated by nothing. Severity of symptoms: At their worst the symptoms were moderate in the emergency department the symptoms are unchanged. The patient has not experienced similar symptoms in the past. It is unknown whether or not the patient has recently seen a physician. Historical: - Allergies: 10:47 No Known Allergies; ca1 - Home Meds: 10:47 alendronate 70 mg oral tab 1 tab once wkly [Active]; Sucralfate Oral [Active]; ca1 Clonazepam Oral [Active]; trazodone 100 mg Oral tab 1 tab nightly [Active]; imipramine HCl 50 mg Oral tab 1 tab nightly [Active]; Prilosec 20 mg Oral cpDR 1 cap once daily [Active]; Toprol XL 25 mg Oral Tb24 1 tab once daily [Active]; Zeasorb AF 2 % topical powd as needed [Active]; patiromer calcium sorbitex oral oral [Active]; simvastatin 20 mg Oral tab 1 tab once daily [Active]; ciclopirox 0.77 % topical crea as needed [Active]; - PMHx: 10:47 CHF; Kidney stones; Hyperlipidemia; Esophageal Reflux; CAD; Actinic Keratosis; ca1 Compression Fracture of L1 vertebra (HCCode); Osteoporosis; Corporo-venous occlusive Erectile Dysfunction; Benign Non-nodular prostatic Hyperplasia; Hyperkalemia; Prostate Cancer; - PSHx: 10:47 Shoulder Surgery R; Knee surgery; ca1 - Immunization history:: Adult Immunizations up to date, Pneumococcal vaccine is up to date, Flu vaccine is not up to date. - Social history:: Smoking status: Patient denies any tobacco usage or history of. ROS: 12:53 Eyes: Negative for injury, pain, redness, and discharge, ENT: Negative for injury, snw pain, and discharge, Neck: Negative for injury, pain, and swelling, Cardiovascular: Negative for chest pain, palpitations, and edema, Respiratory: Negative for shortness of breath, cough, wheezing, and pleuritic chest pain. 12:53 Back: Negative for injury and pain, : Negative for injury, bleeding, discharge, and swelling, MS/Extremity: Negative for injury and deformity, Skin: Negative for injury, rash, and discoloration, Neuro: Negative for numbness, tingling, and seizure, + generalized weakness 12:53 Constitutional: Positive for fatigue, malaise, poor PO intake. 12:53 Abdomen/GI: Positive for nausea, vomiting, and diarrhea. Exam: 12:52 Head/Face: Normocephalic, atraumatic. Eyes: Pupils equal round and reactive to light, snw extra-ocular motions intact. Lids and lashes normal. Conjunctiva and sclera are non-icteric and not injected. Cornea within normal limits. Periorbital areas with no swelling, redness, or edema. ENT: Nares patent. No nasal discharge, no septal abnormalities noted. Tympanic membranes are normal and external auditory canals are clear. Oropharynx with no redness, swelling, or masses, exudates, or evidence of obstruction, uvula midline. Mucous membranes moist. Neck: Trachea midline, no thyromegaly or masses palpated, and no cervical lymphadenopathy. Supple, full range of motion without nuchal rigidity, or vertebral point tenderness. No Meningismus. Chest/axilla: Normal chest wall appearance and motion. Nontender with no deformity. No lesions are appreciated. 12:52 Respiratory: Lungs have equal breath sounds bilaterally, clear to auscultation and percussion. No rales, rhonchi or wheezes noted. No increased work of breathing, no retractions or nasal flaring. Abdomen/GI: Soft, non-tender, with normal bowel sounds. No distension or tympany. No guarding or rebound. No evidence of tenderness throughout. Back: No spinal tenderness. No costovertebral tenderness. Full range of motion. Skin: Warm, dry with normal turgor. Pale color with no rashes, no lesions, and no evidence of cellulitis. MS/ Extremity: Pulses equal, no cyanosis. Neurovascular intact. Full, normal range of motion. Neuro: Awake and alert, GCS 15, oriented to person, place, time, and situation. Cranial nerves II-XII grossly intact. Motor strength 5/5 in all extremities. Sensory grossly intact. Cerebellar exam normal. Normal gait. Psych: Awake, alert, with orientation to person, place and time. Behavior, mood, and affect are within normal limits. 12:52 Constitutional: The patient appears alert, awake, listless. 12:52 Cardiovascular: Rate: tachycardic. Vital Signs: 10:26 BP 111 / 68; Pulse 90; Resp 16; Temp 97.9(TE); Pulse Ox 93% on R/A; Weight 92.53 kg; em1 Height 6 ft. 0 in. (182.88 cm); 11:50 BP 106 / 62; Pulse 101; Resp 15 S; Pulse Ox 93% on R/A; ca1 12:57 BP 104 / 68; Pulse 89; Resp 15 S; Pulse Ox 96% on R/A; ca1 13:54 BP 100 / 62; Pulse 84; Resp 15 S; Pulse Ox 95% on R/A; ca1 14:50 BP 100 / 63; Pulse 78; Resp 14 S; Pulse Ox 94% on R/A; ca1 15:50 BP 108 / 67; Pulse 80; Resp 16 S; Pulse Ox 94% on R/A; ca1 16:55 BP 109 / 59; Pulse 80; Resp 17 S; Pulse Ox 100% on R/A; ca1 17:50 BP 110 / 69; Pulse 89; Resp 89 S; Pulse Ox 95% on R/A; ca1 18:50 BP 107 / 75; Pulse 76; Resp 16; Pulse Ox 91% on R/A; ca1 10:26 Body Mass Index 27.67 (92.53 kg, 182.88 cm) em1 MDM: 10:34 Patient medically screened. [facility] 12:54 Data reviewed: vital signs, nurses notes. Data interpreted: Pulse oximetry: on room air snw is 93 %. Interpretation: borderline. Counseling: I had a detailed discussion with the patient and/or guardian regarding: the historical points, exam findings, and any diagnostic results supporting the discharge/admit diagnosis, lab results, the need for further work-up and treatment in the hospital. Physician consultation: Varinder Matthews DO was called at 12:54, was contacted at 12:54, regarding admission, to the telemetry unit. CoVid 19 +, would like further tests performed, CPK. 02/16 10:39 Order name: Basic Metabolic Panel; Complete Time: 13:07 snw 02/16 10:39 Order name: CBC with Diff; Complete Time: 13:26 snw 02/16 10:39 Order name: LFT's; Complete Time: 13: snw 02/16 10:39 Order name: Magnesium; Complete Time: 13: snw 02/16 10:39 Order name: NT PRO-BNP; Complete Time: 13: snw 02/16 10:39 Order name: PT-INR; Complete Time: 11:27 snw 02/16 10:39 Order name: Troponin (emerg Dept Use Only); Complete Time: 13: snw 02/16 10:39 Order name: Lactate; Complete Time: 12: snw 02/16 10:39 Order name: Ferritin; Complete Time: 13: snw 02/16 11:18 Order name: CBC Smear Scan; Complete Time: 13:26 EDMS 02/16 11:44 Order name: Blood Culture Adult (2) ca1 02/16 11:44 Order name: Procalcitonin; Complete Time: 12:55 ca1 02/16 10:39 Order name: XRAY Chest (1 view); Complete Time: 11:27 snw 02/16 10:39 Order name: EKG; Complete Time: 10:39 snw 02/16 10:39 Order name: Cardiac monitoring; Complete Time: 11:10 snw 02/16 10:39 Order name: EKG - Nurse/Tech; Complete Time: 11:10 snw 02/16 10:39 Order name: IV Saline Lock; Complete Time: 11:10 snw 02/16 10:39 Order name: Labs collected and sent; Complete Time: 11:10 snw 02/16 12:51 Order name: COVID-19/FLU A+B; Complete Time: 12:55 EDMS 02/16 12:55 Order name: Creatine Phosphokinase; Complete Time: 13:07 EDMS 02/16 12:55 Order name: Add On-Lab snw 02/16 21:29 Order name: C-Reactive Protein EDMS 02/16 21:29 Order name: Ferritin EDW[place] 02/16 10:39 Order name: O2 Per Protocol; Complete Time: 11:10 snw 02/16 10:39 Order name: O2 Sat Monitoring; Complete Time: 11:11 snw Administered Medications: 11:47 Drug: NS 0.9% 1000 ml Route: IV; Rate: 75 ml/hr; Site: left antecubital; ca1 13:19 Follow up: Response: No adverse reaction; IV Status: Infusion continued upon admission ca1 11:48 Drug: fentaNYL (PF) 25 mcg {Note: rass 0.} Route: IVP; Site: left antecubital; ca1 13:19 Follow up: Response: No adverse reaction; Pain is decreased; RASS: Alert and Calm (0) ca1 12:00 Drug: Decadron - Dexamethasone 10 mg Route: IVP; Site: left antecubital; ca1 13:18 Follow up: Response: No adverse reaction ca1 12:26 Drug: Rocephin 1 grams Route: IV; Rate: calculated rate; Site: left antecubital; ca1 13:00 Follow up: Response: No adverse reaction; IV Status: Completed infusion ca1 12:34 Drug: Zithromax 500 mg Route: IVPB; Infused Over: 1 hrs; Site: left antecubital; ca1 13:18 Follow up: Response: No adverse reaction; IV Status: Infusion continued upon admission ca1 13:54 Follow up: Response: No adverse reaction; IV Status: Completed infusion; IV Intake: ca1 250ml Disposition: 02/17/20 11:36 Hospitalization ordered by Varinder Matthews for Observation. Preliminary diagnosis are Pneumonia due to SARS-associated coronavirus, Dehydration. - Bed requested for Telemetry/MedSurg (Inpatient). - Status is Observation. sg - Condition is Stable. - Problem is new. - Symptoms have worsened. Addendum: 02/19/2020 06:51 Co-signature as Attending Physician, Angus Tellez MD I agree with the assessment and c field plan of care. Signatures: Dispatcher [employer] [facility] Rosalee Lainez RN RN dm5 Susy Garcia RN RN mw Gay, Steven, RN RN sg Anderson, Corey, MD MD cha Waters, Shelly, EFFICIENCY MINER-C EFFICIENCY MINER-Csnw Keyanna Villalobos RN RN ca1 Corrections: (The following items were deleted from the chart) 02/16 12:01 10:39 CORONAVIRUS+MR.LAB.BRZ ordered. [facility] EDWY 12:01 11:34 Influenza Screen (A \T\ B)+BA.LAB.BRZ ordered. [facility] EDWY 12:52 11:36 Hospitalization Ordered by Varinder Matthews DO for Inpatient Admission. Preliminary snw diagnosis is Pneumonia due to SARS-associated coronavirus. Bed requested for Telemetry/MedSurg (Inpatient). Status is Inpatient Admission. Condition is Stable. Problem is new. Symptoms have worsened. sn 13:05 12:52 02/17/2020 11:36 Hospitalization Ordered by [place] [facility] for Inpatient snw Admission. Preliminary diagnosis is Pneumonia due to SARS-associated coronavirus; Dehydration. Bed requested for Telemetry/MedSurg (Inpatient). Status is Inpatient Admission. Condition is Stable. Problem is new. Symptoms have worsened. sn 13:32 13:05 02/17/2020 11:36 Hospitalization Ordered by [place] [facility] for Observation. dm5 Preliminary diagnosis is Pneumonia due to SARS-associated coronavirus; Dehydration. Bed requested for Telemetry/MedSurg (Inpatient). Status is Observation. Condition is Stable. Problem is new. Symptoms have worsened. sn 21:40 13:32 02/17/2020 11:36 Hospitalization Ordered by [place] [facility] for Observation. Preliminary diagnosis is Pneumonia due to SARS-associated coronavirus; Dehydration. Bed requested for [facility] ER HOLD. Status is Observation. Condition is Stable. Problem is new. Symptoms have worsened. dm5 02/17 00:03 02/16 21:40 02/17/2020 11:36 Hospitalization Ordered by [place] [facility] for sg Observation. Preliminary diagnosis is Pneumonia due to SARS-associated coronavirus; Dehydration. Bed requested for Telemetry/MedSurg (Inpatient). Status is Observation. Condition is Stable. Problem is new. Symptoms have worsened. mw
--- NOTE | 2020-02-17 11:37 | ER ---
Nurse's Notes [facility] Name: Deangelo Borges Jr Age: 75 yrs Sex: Male : 1945 Arrival Date: 02/17/2020 Time: 09:58 Bed 27 Private MD: Diagnosis: Pneumonia due to SARS-associated coronavirus;Dehydration Presentation: 02/16 10:33 Chief complaint: Patient states: for 6 - 7 days, I have an upset stomach. N/V/D. Today, ca1 I vomited twice, diarrhea twice. Had cough few days ago but not anymore. I feel dehydrated and weak. Denies fever. Coronavirus screen: Client denies travel out of the [place] in the last 14 days. cough unrelated to allergies, diarrhea, fatigue, nausea, vomiting. Client presents with at least one sign or symptom that may indicate coronavirus-19. Standard/surgical mask placed on the client. Provider contacted for isolation considerations. The client denies any previous COVID testing. Ebola Screen: Patient negative for fever greater than or equal to 101.5 degrees Fahrenheit, and additional compatible Ebola Virus Disease symptoms Patient denies exposure to infectious person. Patient denies travel to an Ebola-affected area in the 21 days before illness onset. No symptoms or risks identified at this time. Initial Sepsis Screen: Does the patient meet any 2 criteria? No. Patient's initial sepsis screen is negative. Does the patient have a suspected source of infection? No. Patient's initial sepsis screen is negative. Risk Assessment: Do you want to hurt yourself or someone else? Patient reports no desire to harm self or others. Onset of symptoms was February 17, 2020. 10:33 Method Of Arrival: Wheelchair ca1 10:33 Acuity: JOSE 3 ca1 Triage Assessment: 10:47 General: Appears in no apparent distress. comfortable, Behavior is calm, cooperative, ca1 appropriate for age, Reports feeling ill for > 3 days. Pain: Denies pain. EENT: No signs and/or symptoms were reported regarding the EENT system. Neuro: Level of Consciousness is awake, alert, obeys commands, Oriented to person, place, time, situation. Cardiovascular: Heart tones S1 S2 present Capillary refill < 3 seconds Rhythm is sinus rhythm with multifocal PVCs. Respiratory: Airway is patent Respiratory effort is even, unlabored, Respiratory pattern is regular, symmetrical, Breath sounds are clear bilaterally. GI: Abdomen is round non-distended, Bowel sounds present X 4 quads. Reports diarrhea, nausea, vomiting. : No signs and/or symptoms were reported regarding the genitourinary system. Derm: Skin is intact, is healthy with good turgor, Skin is pink, warm \T\ dry. Musculoskeletal: Circulation, motion, and sensation intact. Capillary refill < 3 seconds. Historical: - Allergies: 10:47 No Known Allergies; ca1 - Home Meds: 10:47 alendronate 70 mg oral tab 1 tab once wkly [Active]; Sucralfate Oral [Active]; ca1 Clonazepam Oral [Active]; trazodone 100 mg Oral tab 1 tab nightly [Active]; imipramine HCl 50 mg Oral tab 1 tab nightly [Active]; Prilosec 20 mg Oral cpDR 1 cap once daily [Active]; Toprol XL 25 mg Oral Tb24 1 tab once daily [Active]; Zeasorb AF 2 % topical powd as needed [Active]; patiromer calcium sorbitex oral oral [Active]; simvastatin 20 mg Oral tab 1 tab once daily [Active]; ciclopirox 0.77 % topical crea as needed [Active]; - PMHx: 10:47 CHF; Kidney stones; Hyperlipidemia; Esophageal Reflux; CAD; Actinic Keratosis; ca1 Compression Fracture of L1 vertebra (HCCode); Osteoporosis; Corporo-venous occlusive Erectile Dysfunction; Benign Non-nodular prostatic Hyperplasia; Hyperkalemia; Prostate Cancer; - PSHx: 10:47 Shoulder Surgery R; Knee surgery; ca1 - Immunization history:: Adult Immunizations up to date, Pneumococcal vaccine is up to date, Flu vaccine is not up to date. - Social history:: Smoking status: Patient denies any tobacco usage or history of. Screenin:49 Abuse screen: Denies threats or abuse. Denies injuries from another. Nutritional ca1 screening: No deficits noted. Tuberculosis screening: No symptoms or risk factors identified. Fall Risk IV access (20 points). Assessment: 10:49 Reassessment: See triage notes. Pain: Denies pain. GI: Abdomen is flat, non-distended, ca1 Bowel sounds present X 4 quads. Abd is soft and non tender X 4 quads. Reports diarrhea, nausea, vomiting. 11:50 Reassessment: Patient appears in no apparent distress at this time. Patient and/or ca1 family updated on plan of care and expected duration. Pain level reassessed. Patient is alert, oriented x 3, equal unlabored respirations, skin warm/dry/pink. 12:57 Reassessment: Patient appears in no apparent distress at this time. Patient and/or ca1 family updated on plan of care and expected duration. Pain level reassessed. Patient is alert, oriented x 3, equal unlabored respirations, skin warm/dry/pink. Dr. Matthews at bedside. 13:54 Reassessment: Patient appears in no apparent distress at this time. Patient and/or ca1 family updated on plan of care and expected duration. Pain level reassessed. Patient is alert, oriented x 3, equal unlabored respirations, skin warm/dry/pink. 14:55 Reassessment: Patient appears in no apparent distress at this time. Patient and/or ca1 family updated on plan of care and expected duration. Pain level reassessed. Patient is alert, oriented x 3, equal unlabored respirations, skin warm/dry/pink. 15:50 Reassessment: Patient appears in no apparent distress at this time. Patient and/or ca1 family updated on plan of care and expected duration. Pain level reassessed. Patient is alert, oriented x 3, equal unlabored respirations, skin warm/dry/pink. 16:50 Reassessment: Patient appears in no apparent distress at this time. Patient and/or ca1 family updated on plan of care and expected duration. Pain level reassessed. Patient is alert, oriented x 3, equal unlabored respirations, skin warm/dry/pink. 17:50 Reassessment: Patient appears in no apparent distress at this time. Patient and/or ca1 family updated on plan of care and expected duration. Pain level reassessed. Patient is alert, oriented x 3, equal unlabored respirations, skin warm/dry/pink. 18:50 Reassessment: Patient appears in no apparent distress at this time. Patient and/or ca1 family updated on plan of care and expected duration. Pain level reassessed. Patient is alert, oriented x 3, equal unlabored respirations, skin warm/dry/pink. Vital Signs: 10:26 BP 111 / 68; Pulse 90; Resp 16; Temp 97.9(TE); Pulse Ox 93% on R/A; Weight 92.53 kg; em1 Height 6 ft. 0 in. (182.88 cm); 11:50 BP 106 / 62; Pulse 101; Resp 15 S; Pulse Ox 93% on R/A; ca1 12:57 BP 104 / 68; Pulse 89; Resp 15 S; Pulse Ox 96% on R/A; ca1 13:54 BP 100 / 62; Pulse 84; Resp 15 S; Pulse Ox 95% on R/A; ca1 14:50 BP 100 / 63; Pulse 78; Resp 14 S; Pulse Ox 94% on R/A; ca1 15:50 BP 108 / 67; Pulse 80; Resp 16 S; Pulse Ox 94% on R/A; ca1 16:55 BP 109 / 59; Pulse 80; Resp 17 S; Pulse Ox 100% on R/A; ca1 17:50 BP 110 / 69; Pulse 89; Resp 89 S; Pulse Ox 95% on R/A; ca1 18:50 BP 107 / 75; Pulse 76; Resp 16; Pulse Ox 91% on R/A; ca1 10:26 Body Mass Index 27.67 (92.53 kg, 182.88 cm) em1 ED Course: 09:58 Patient arrived in ED. rg4 10:21 Keyanna Villalobos, FRANCISCO is Primary Nurse. ca1 10:34 Selene Charles FNP-C is PHCP. snw 10:34 Angus Tellez MD is Attending Physician. snw 10:35 Triage completed. ca1 10:47 Arm band placed on right wrist. ca1 10:49 Patient has correct armband on for positive identification. Placed in gown. Bed in low ca1 position. Call light in reach. Side rails up X2. environmental monitoring specialist on. Pulse ox on. NIBP on. Warm blanket given. 11:05 XRAY Chest (1 view) In Process Unspecified. EDMS 11:08 Initial lab(s) drawn, by me, sent to lab. Inserted saline lock: 22 gauge in left ca1 antecubital area, using aseptic technique. Blood collected. 11:36 Varinder Matthews DO is Hospitalizing Provider. snw 12:05 First set of blood cultures drawn by nd. em1 13:54 No provider procedures requiring assistance completed. Patient admitted, IV remains in ca1 place. 19:34 Report given to FRANCISCO Moore. ca1 Administered Medications: 11:47 Drug: NS 0.9% 1000 ml Route: IV; Rate: 75 ml/hr; Site: left antecubital; ca1 13:19 Follow up: Response: No adverse reaction; IV Status: Infusion continued upon admission ca1 11:48 Drug: fentaNYL (PF) 25 mcg {Note: rass 0.} Route: IVP; Site: left antecubital; ca1 13:19 Follow up: Response: No adverse reaction; Pain is decreased; RASS: Alert and Calm (0) ca1 12:00 Drug: Decadron - Dexamethasone 10 mg Route: IVP; Site: left antecubital; ca1 13:18 Follow up: Response: No adverse reaction ca1 12:26 Drug: Rocephin 1 grams Route: IV; Rate: calculated rate; Site: left antecubital; ca1 13:00 Follow up: Response: No adverse reaction; IV Status: Completed infusion ca1 12:34 Drug: Zithromax 500 mg Route: IVPB; Infused Over: 1 hrs; Site: left antecubital; ca1 13:18 Follow up: Response: No adverse reaction; IV Status: Infusion continued upon admission ca1 13:54 Follow up: Response: No adverse reaction; IV Status: Completed infusion; IV Intake: ca1 250ml Intake: 13:54 IV: 250ml; Total: 250ml. ca1 Outcome: 11:36 Decision to Hospitalize by Provider. snw 19:34 Admitted to ER Hold. Please see [facility] for further documentation. ca1 19:34 Condition: stable 19:34 Instructed on the need for admit. 02/17 00:03 Patient left the ED. sg Signatures: Dispatcher [employer] EDTim Tellez RN RN Selene Ibarra, PANTOGRAPH I ENGRAVER-C PANTOGRAPH I ENGRAVER-Osiel [place] em1 Tania Diamond4 Keyanna Villalobos RN RN ca1 Corrections: (The following items were deleted from the chart) 02/16 12:01 11:41 Influenza Screen (A \T\ B)+BA.LAB.BRZ drawn and sent. ca1 EDMS
[2020-02-17 11:50] LABS: ALT/SGPT 11 U/L (12-78); AST/SGOT 22 U/L (15-37); Alkaline Phosphatase 96 U/L (45-117); BUN Blood Urea Nitrogen 20 mg/dL (7-18); Bicarbonate 27 mmol/L (21-32); Bilirubin Direct 0.1 mg/dL (0-0.2); Bilirubin Total 0.4 mg/dL (0.2-1.0); Ferritin 56.7 ng/mL (26-388); Glucose Level 113 mg/dL (74-106); Magnesium 2.2 mg/dL (1.8-2.4); NT PRO-BNP 520 pg/mL (<450); Potassium 4.2 mmol/L (3.5-5.1); Protein, Total 6.8 g/dL (6.4-8.2); Sodium Level 137 mmol/L (136-145); Troponin (Emerg Dept Use Only) < 0.02 ng/mL (0.0-0.045)
[2020-02-17] MEDS ORDERED: AZITHROMYCIN IV 500 MG in NA CHLORIDE 0.9% 250 ML IVPB ONE (12:00)
[2020-02-17] MEDS ORDERED: FENTANYL CITR 100 MCG/2 ML ONE (12:05)
[2020-02-17] MEDS ORDERED: NA CHLORIDE 0.9% 1,000 ML ONE (12:06)
[2020-02-17] MEDS ORDERED: CEFTRIAXONE/SWI 1gm 1 GM/10 ML SYR ONE (12:06)
[2020-02-17] MEDS ORDERED: dexAMETHasone 10 MG/ML VIAL ONE (12:06)
[2020-02-17 12:50] LABS: SARS-COV-2 RT PCR POSITIVE (NEGATIVE)
[2020-02-17 13:06] LABS: Creatine Phosphokinase 20 U/L (39-308)
[2020-02-17 13:25] LABS: Blood Morphology Comment NOTED (NOT SEEN); Platelet Estimate DECR; Platelets, Giant FEW; White Blood Cell Scan OK (OK)
--- NOTE | 2020-02-17 13:29 | P.HP ---
Certification for Inpatient Patient admitted to: Observation With expected LOS: <2 Midnights Patient will require the following post-hospital care: None Practitioner: I am a practitioner with admitting privileges, knowledge of patient current condition, hospital course, and medical plan of care. Services: Services provided to patient in accordance with Admission requirements found in Title 42 Section 412.3 of the Code of Federal Regulations Patient History Date of Service: 02/17/20 Primary Care Provider: Dr. May([facility]) Reason for admission: Nausea, vomiting History of Present Illness: 75-year-old male with history of hypertension, GERD. Patient presented with increased fatigue, nausea and vomiting. He also reported a cough. Symptoms have been worsening over the past week. No sick contacts noted. Patient denies any fever, chills. No significant shortness of breath. He came to the ER for further evaluation. In the ER patient was evaluated. White count 3.2, hemoglobin 13. BUN of 20, creatinine 1.59 with a GFR 43. Lactic acid and pro calcitonin within normal range. Troponin negative. Patient was negative for influenza. Patient was positive for COVID. Chest x-ray revealed bilateral Coban pneumonia pattern with right lower lobe pneumonia. The patient given IV antibiotic therapy-Zithromax and Rocephin in the emergency room including Decadron. Patient admitted for further evaluation and observation. When I saw the patient in the ER, he appeared stable. Family at bedside. Allergies No Known Allergies Allergy (Unverified 02/17/20 11:52) Home medications list reviewed: Yes - Past Medical/Surgical History Diabetic: No -: Hypertension -: GERD -: Insomnia Past Surgical History: Reviewed- Non-Contributory Psychosocial/ Personal History: Patient lives at home - Family History Family History: Reviewed- Non-Contributory - Social History Smoking Status: Never smoker Alcohol use: No CD- Drugs: No Caffeine use: No Place of Residence: Home Review of Systems General: Weakness, As per HPI Eyes: Unremarkable ENT: Unremarkable Respiratory: Cough, As per HPI Cardiovascular: Unremarkable Gastrointestinal: Nausea, Vomiting, As per HPI Genitourinary: Unremarkable Musculoskeletal: Unremarkable Integumentary: Unremarkable Neurological: Unremarkable Lymphatics: Unremarkable Physical Examination - Physical Exam General: Alert, In no apparent distress, Oriented x3, Cooperative HEENT: Atraumatic, Normocephalic, Other (Dry mucous membranes) Neck: Supple Respiratory: Other (Decreased to the right base) Cardiovascular: Normal pulses, Regular rate/rhythm Gastrointestinal: Normal bowel sounds, Soft and benign, Non-distended, No tenderness, No masses, No rebound, No guarding Musculoskeletal: No erythema, No tenderness, No warmth Integumentary: No tenderness/swelling, No erythema, No warmth, No cyanosis Neurological: Normal speech, Normal strength at 5/5 x4 extr, Normal tone, Normal affect - Studies Laboratory Data (last 24 hrs) 02/17/20 11:08: PT 13.4 H, INR 1.14 02/17/20 11:08: WBC 3.2 L, Hgb 13.0 L, Hct 40.5, Plt Count 121 L 02/17/20 11:08: Sodium 137, Potassium 4.2, BUN 20 H, Creatinine 1.59 H, Glucose 113 H, Magnesium 2.2, Total Bilirubin 0.4, AST 22, ALT 11 L, Alkaline Phosphatase 96 Assessment and Plan - Plan Impression: Bilateral CIVUD 19 pneumonia with right lower lobe bacterial pneumonia Acute renal insufficiency likely dehydration with noted nausea vomiting Hypertension GERD Insomnia Plan: Patient will be admitted for further evaluation and treatment. Will maintain oxygen to above 93%. Patient asymptomatic at this time. Patient will continue with IV Rocephin and Zithromax. Will start Solu-Medrol 40 mg IV 3 times a day. Will provide medication for cough. Will provide supplementation as well. Will also provide IV fluids up to 1 L. Continue monitor closely. Obtain and restart home medications. Anticipate improvement over the next 24 hr. Likely discharge tomorrow if significantly improved. Discharge Plan: Home Plan to discharge in: 24 Hours - Advance Directives Does patient have a Living Will: No Does patient have a Durable POA for Healthcare: No - Code Status/Comfort Care Code Status Assessed: Yes (Full code) Time Spent Managing Pts Care (In Minutes): 55
[2020-02-17] MEDS ORDERED: NA CHLORIDE 0.9% 1,000 ML IV SCH (20:06)
[2020-02-17] MEDS ORDERED: ONDANSETRON 4 MG/2 ML VIAL IV PRN (20:06)
[2020-02-17] MEDS ORDERED: BENZONATATE 100 MG CAP PO PRN (20:06)
[2020-02-17] MEDS ORDERED: ACETAMINOPHEN 500 MG TAB PO PRN (20:06)
[2020-02-17] MEDS ORDERED: IPRATROPIUM BROM 0.5MG/2.5ML NEB PRN (20:06)
[2020-02-17] MEDS ORDERED: ALBUTEROL 2.5 MG/3 ML NEB SOL NEB PRN (20:06)
[2020-02-17] MEDS: ASCORBIC ACID 500 MG TABLET PO SCH ×2 (21:00→21:25)
[2020-02-17] MEDS: METHYLPREDNISOLONE 40 MG INJ IV SCH (21:25)
[2020-02-17 21:29] LABS: C-Reactive Protein 62.6 mg/L (<3.00); Ferritin 50.9 ng/mL (26-388)
[2020-02-17] MEDS ORDERED: METHYLPREDNISOLONE 40 MG INJ ONE (21:38)
[2020-02-17] MEDS ORDERED: ASCORBIC ACID 500 MG TABLET ONE (21:38)
[2020-02-18 00:56] VITALS: BMI 27.6
[2020-02-18] MEDS: METHYLPREDNISOLONE 40 MG INJ IV SCH ×2 (01:13→08:01)
[2020-02-18 03:48] LABS: Absolute Lymphocytes (CBC) 0.9 K/uL (0.7-4.9); Basophils % 0.2 % (0-1.3); Hematocrit 35.3 % (39.6-49.0); Lymphocytes % 35.7 % (15.3-44.8); MPV 9.8 fL (7.6-11.3); RBC Red Blood Cell Count 4.47 M/uL (4.33-5.43)
[2020-02-18 04:38] LABS: Blood Morphology Comment NOTED (NOT SEEN); Platelet Estimate ADEQ; White Blood Cell Scan OK (OK)
[2020-02-18 04:39] LABS: Burr Cells 2+; Ovalocytes 1+
--- NOTE | 2020-02-18 07:36 | P.DS ---
Admission Date: 02/17/20 Discharge Date: 02/18/20 Primary Care Provider: Dr. May([facility]) Disposition: ROUTINE DISCHARGE Discharge Condition: GOOD Reason for Admission: Nausea, vomiting Consultations: Pulmonary-Dr. Fitzgerald Procedures: CXR: FINDINGS: Portable technique limits examination quality. Mild bilateral interstitial lung opacities are present with increased linear opacity in the right lung base suspicious for pneumonia. Heart is upper limit normal in size. No displaced fractures. Medical Problem List: Bilateral COVID 19 pneumonia with right lower lobe bacterial pneumonia Acute renal insufficiency likely dehydration with noted nausea vomiting Hypertension GERD Insomnia Brief History of Present Illness: 75-year-old male with history of hypertension, GERD. Patient presented with increased fatigue, nausea and vomiting. He also reported a cough. Symptoms have been worsening over the past week. No sick contacts noted. Patient denies any fever, chills. No significant shortness of breath. He came to the ER for further evaluation. In the ER patient was evaluated. White count 3.2, hemoglobin 13. BUN of 20, creatinine 1.59 with a GFR 43. Lactic acid and pro calcitonin within normal range. Troponin negative. Patient was negative for influenza. Patient was positive for COVID. Chest x-ray revealed bilateral Coban pneumonia pattern with right lower lobe pneumonia. The patient given IV antibiotic therapy-Zithromax and Rocephin in the emergency room including Decadron. Patient admitted for further evaluation and observation. When I saw the patient in the ER, he appeared stable. Family at bedside. Hospital Course: Patient presented secondary to bilateral Bilateral COVID 19 pneumonia with right lower lobe bacterial pneumonia. Patient was admitted for further patient did well with IV Solu-Medrol and antibiotic therapy. Patient maintain oxygen. Patient also received IV fluids due to mild dehydration due to recent nausea and vomiting. Overnite patient has done well. Patient appears to be back to baseline. At discharge prior to discharge patient will be evaluated for the need for home oxygen. If required home oxygen at 2 L per nasal cannula will be arranged. At discharge will continue for 7 days then 1 pill once daily for 7 days for his COVID 19 pneumonia. He will continue with Zithromax 250 mg daily for 4 days and Augmentin 500 mg 1 pill twice daily for 7 days to cover for right lower lobe bacterial pneumonia. The patient will also continue with supplementation including vitamin-C, thiamine and zinc. The patient will be provided Avancar 100 mg 1 pill 3 times a day as needed for cough. Recommend follow up with pulmonology in 1 week to follow up his care and further address his condition. Recommend follow up with his PCP in 1 week to follow up this hospitalization. Education on pneumonia and COVID 19 isolation/guidelines will be provided. Patient will continue with face mask use, social distancing, and frequent hand washing. Recommend to recheck chest x-ray in 2-4 weeks to monitor resolution. As mentioned above patient with acute renal insufficiency likely from dehydration with noted nausea and vomiting. This has resolved. Renal function appears back to baseline. Recommend to continue oral intake. Recommend to recheck lab-BMP in 1 week to monitors progress. Patient with hypertension. Patient takes Toprol-XL 25 mg daily. Patient may continue with his medication. Recommend to hold medication if blood pressure systolic less than 110 or heart rate less than 50. Further adjustment in his medication can be done by his PCP. Patient with history of GERD. At discharge patient will continue with Prilosec 20 mg daily and Carafate 1 g daily. Patient with history of insomnia. At discharge patient will continue with his current medications of trazodone and clonazepam as directed. Patient will continue with his other medications including Tofranil 50 mg at bedtime and Zocor 20 mg as directed. Vital Signs/Physical Exam: Temp Pulse Resp BP Pulse Ox 97.7 F 79 16 100/68 92 02/18/20 04:00 02/18/20 04:00 02/18/20 04:00 02/18/20 04:00 02/18/20 04:00 General: Alert, In no apparent distress, Oriented x3, Cooperative HEENT: Atraumatic Neck: Supple Respiratory: Other (Patient no longer on oxygen. Breathing appropriately. No distress noted) Cardiovascular: Normal pulses, Regular rate/rhythm Neurological: Normal speech, Normal strength at 5/5 x4 extr, Normal tone, Normal affect Laboratory Data at Discharge: WBC 2.4 K/uL (4.3-10.9) L D 02/18/20 03:06 Hgb 11.5 g/dL (13.6-17.9) L 02/18/20 03:06 Hct 35.3 % (39.6-49.0) L 02/18/20 03:06 Plt Count 125 K/uL (152-406) L 02/18/20 03:06 PT 13.4 SECONDS (9.5-12.5) H 02/17/20 11:08 INR 1.14 02/17/20 11:08 Sodium 137 mmol/L (136-145) 02/18/20 03:06 Potassium 5.0 mmol/L (3.5-5.1) 02/18/20 03:06 BUN 23 mg/dL (7-18) H 02/18/20 03:06 Creatinine 1.26 mg/dL (0.55-1.3) 02/18/20 03:06 Glucose 161 mg/dL (74-106) H 02/18/20 03:06 Magnesium 2.0 mg/dL (1.8-2.4) 02/18/20 03:06 Total Bilirubin 0.4 mg/dL (0.2-1.0) 02/17/20 11:08 AST 22 U/L (15-37) 02/17/20 11:08 ALT 11 U/L (12-78) L 02/17/20 11:08 Alkaline Phosphatase 96 U/L (45-117) 02/17/20 11:08 Home Medications: Alendronate Sodium 1 tab PO SEECOM 02/18/20 Amox/Clavulanate [Augmentin 500-125 mg Tab] 500 mg PO BID #14 tab 02/18/20 Ascorbic Acid [Vitamin C*] 500 mg PO TID #90 tablet 02/18/20 Azithromycin Tab [Zithromax*] 250 mg PO DAILY #4 tab 02/18/20 Benzonatate [Tessalon Perle*] 100 mg PO TID PRN #10 cap 02/18/20 Cholecalciferol (Vitamin D3) [Vitamin D 1000 Iu Tab*] 2,000 unit PO DAILY #60 tab 02/18/20 Imipramine HCl [Tofranil*] 50 mg PO BEDTIME 02/18/20 Metoprolol Succinate [Toprol Xl*] 1 tab PO DAILY 02/18/20 Omeprazole Magnesium [Prilosec Otc] 1 tab PO DAILY 02/18/20 Simvastatin 1 tab PO SEECOM 02/18/20 Sucralfate [Carafate*] 1 tab PO DAILY 02/18/20 Thiamine HCl [Vitamin B-1*] 100 mg PO DAILY #30 tablet 02/18/20 Trazodone [Desyrel*] 1 tab PO BEDTIME 02/18/20 Zinc Sulfate [Zinc Sulfate*] 220 mg PO DAILY #30 cap 02/18/20 clonazePAM [Clonazepam] 1 tab PO BEDTIME 02/18/20 predniSONE [Deltasone] 20 mg PO SEECOM #21 tab 02/18/20 New Medications: Amox/Clavulanate [Augmentin 500-125 mg Tab] 500 mg PO BID #14 tab predniSONE [Deltasone] 20 mg PO SEECOM #21 tab Benzonatate [Tessalon Perle*] 100 mg PO TID PRN #10 cap PRN Reason: Cough Thiamine HCl [Vitamin B-1*] 100 mg PO DAILY #30 tablet Ascorbic Acid [Vitamin C*] 500 mg PO TID #90 tablet Cholecalciferol (Vitamin D3) [Vitamin D 1000 Iu Tab*] 2,000 unit PO DAILY #60 tab Zinc Sulfate [Zinc Sulfate*] 220 mg PO DAILY #30 cap Azithromycin Tab [Zithromax*] 250 mg PO DAILY #4 tab Patient Discharge Instructions: 1. Recommend follow up with PCP in 1 week to follow up this hospitalization. 2. Patient presented secondary to bilateral Bilateral COVID 19 pneumonia with right lower lobe bacterial pneumonia. Patient was admitted for further patient did well with IV Solu-Medrol and antibiotic therapy. Patient maintain oxygen. Patient also received IV fluids due to mild dehydration due to recent nausea and vomiting. Overnite patient has done well. Patient appears to be back to baseline. At discharge prior to discharge patient will be evaluated for the need for home oxygen. If required home oxygen at 2 L per nasal cannula will be arranged. At discharge will continue for 7 days then 1 pill once daily for 7 days for his COVID 19 pneumonia. He will continue with Zithromax 250 mg daily for 4 days and Augmentin 500 mg 1 pill twice daily for 7 days to cover for right lower lobe bacterial pneumonia. The patient will also continue with supplementation including vitamin-C, thiamine and zinc. The patient will be provided Tessalon Perles 100 mg 1 pill 3 times a day as needed for cough. Recommend follow up with pulmonology in 1 week to follow up his care and further address his condition. Recommend follow up with his PCP in 1 week to follow up this hospitalization. Education on pneumonia and COVID 19 isolation/guidelines will be provided. Patient will continue with face mask use, social distancing, and frequent hand washing. Recommend to recheck chest x-ray in 2-4 weeks to monitor resolution. 3. As mentioned above patient with acute renal insufficiency likely from dehydration with noted nausea and vomiting. This has resolved. Renal function appears back to baseline. Recommend to continue oral intake. Recommend to recheck lab-BMP in 1 week to monitors progress. 4. Patient with hypertension. Patient takes Toprol-XL 25 mg daily. Patient may continue with his medication. Recommend to hold medication if blood pressure systolic less than 110 or heart rate less than 50. Further adjustment in his medication can be done by his PCP. 5. Patient with history of GERD. At discharge patient will continue with Prilosec 20 mg daily and Carafate 1 g daily. 6. Patient with history of insomnia. At discharge patient will continue with his current medications of trazodone and clonazepam as directed. 7. Patient will continue with his other medications including Tofranil 50 mg at bedtime and Zocor 20 mg as directed. Diet: AHA Activity: Ad mora Followup: DAMIR REICH [Primary Care Provider] - Time spent managing pt's care (in minutes): 55
[2020-02-18] MEDS: ASCORBIC ACID 500 MG TABLET PO SCH (07:59)
[2020-02-18] MEDS ORDERED: INFLUENZA VACCINE (for 3y+) 0.5 ML DOSE IMVAC ONE (08:00)
[2020-02-18 08:18] LABS: C-Reactive Protein 61.9 mg/L (<3.00); Ferritin 49.3 ng/mL (26-388)
[2020-02-18 08:58] VITALS: BP 138/66; TEMP 97.1
[2020-02-18] MEDS ORDERED: VITAMIN D 1000 UNIT TAB PO SCH (09:00)
[2020-02-18] MEDS ORDERED: ZINC SULFATE 220 MG CAP PO SCH (09:00)
[2020-02-18] MEDS ORDERED: ENOXAPARIN 40 MG/0.4 ML SQ SCH (09:00)
[2020-02-18] MEDS ORDERED: THIAMINE HCL 100 MG TABLET PO SCH (09:00)
[2020-02-18] MEDS ORDERED: METOPROLOL XL 25 MG TAB PO SCH (09:00)
[2020-02-18] MEDS ORDERED: CEFTRIAXONE 1 GM/NS 50 ML 1 GM/50 ML BAG IV SCH (09:00)
[2020-02-18] MEDS ORDERED: AZITHROMYCIN 250 MG TAB PO SCH (09:00)
[2020-02-18] MEDS ORDERED: CEFTRIAXONE/SWI 1gm 1 GM/10 ML SYR IV SCH (09:00)
[2020-02-18 10:03] VITALS: O2SAT 91
--- NOTE | 2020-02-18 13:03 | P.CNS ---
Date of Consult: 02/18/20 Primary Care Provider: Dr. May([facility]) Chief Complaint: Nausea, vomiting History of Present Illness: Patient is 78 years of age with a history of hypertension admitted with increasing fatigue nausea vomiting cough shortness of breath recently di agnosed with becerra virus as admitted is currently doing very well final signs are all stable wants to go Allergies No Known Allergies Allergy (Unverified 02/17/20 11:52) Home Medications: Alendronate Sodium 1 tab PO SEECOM 02/18/20 Amox/Clavulanate [Augmentin 500-125 mg Tab] 500 mg PO BID #14 tab 02/18/20 Ascorbic Acid [Vitamin C*] 500 mg PO TID #90 tablet 02/18/20 Azithromycin Tab [Zithromax*] 250 mg PO DAILY #4 tab 02/18/20 Benzonatate [Tessalon Perle*] 100 mg PO TID PRN #10 cap 02/18/20 Cholecalciferol (Vitamin D3) [Vitamin D 1000 Iu Tab*] 2,000 unit PO DAILY #60 tab 02/18/20 Imipramine HCl [Tofranil*] 50 mg PO BEDTIME 02/18/20 Metoprolol Succinate [Toprol Xl*] 1 tab PO DAILY 02/18/20 Omeprazole Magnesium [Prilosec Otc] 1 tab PO DAILY 02/18/20 Simvastatin 1 tab PO SEECOM 02/18/20 Sucralfate [Carafate*] 1 tab PO DAILY 02/18/20 Thiamine HCl [Vitamin B-1*] 100 mg PO DAILY #30 tablet 02/18/20 Trazodone [Desyrel*] 1 tab PO BEDTIME 02/18/20 Zinc Sulfate [Zinc Sulfate*] 220 mg PO DAILY #30 cap 02/18/20 clonazePAM [Clonazepam] 1 tab PO BEDTIME 02/18/20 predniSONE [Deltasone] 20 mg PO SEECOM #21 tab 02/18/20 - Past Medical/Surgical History Diabetic: No -: Hypertension -: GERD -: Insomnia Psychosocial/ Personal History: Patient lives at home - Social History Smoking Status: Current every day smoker Alcohol use: No CD- Drugs: No Caffeine use: Yes Place of Residence: Home Review of Systems General: Weakness Respiratory: Shortness of Breath Physical Examination Temp Pulse Resp BP Pulse Ox 97.1 F 76 18 138/66 89 L 01/05/21 08:00 02/18/20 08:00 02/18/20 08:00 02/18/20 08:00 02/18/20 08:00 General: Alert, In no apparent distress, Oriented x3 Respiratory: Clear to auscultation bilaterally Cardiovascular: No edema, Regular rate/rhythm - Problems (1) Pneumonia due to Coronavirus disease 2019 Status: Acute Plan: Patient is 75 years of age admitted with pneumonia due to becerra virus is doing much better the qualify for home O2 agree with discharge on prednisone follow-up with me in 2 weeks ABS all reviewed as to have a pancytopenia
[2020-02-18] MEDS ORDERED: TRAZODONE 50 MG TABLET PO SCH (21:00)
[2020-02-18] MEDS ORDERED: IMIPRAMINE HCL 25 MG TAB PO SCH (21:00)
[2020-02-18] MEDS ORDERED: clonazePAM 1 MG TAB PO SCH (21:00)
[2020-02-18] MEDS ORDERED: ATORVASTATIN 10 MG TAB PO SCH (21:00)
[2020-02-19] MEDS ORDERED: SUCRALFATE 1 GM TABLET PO SCH (06:30)
[2020-02-19] MEDS ORDERED: PANTOPRAZOLE 40MG TABLET PO SCH (06:30)
== END 2020-02-18 12:40 | disposition home or self-care (01) ==
LOC: ER 09:55 → ERHOLD 13:18 → 4TH 22:01
PROVIDERS: ADMIT Family Medicine; ATTEND Family Medicine
DX: U07.1 COVID-19 (principal); J12.82 Pneumonia due to coronavirus disease 2019; J15.9 Unspecified bacterial pneumonia; N28.9 Disorder of kidney and ureter, unspecified; I10 Essential (primary) hypertension; K21.9 Gastro-esophageal reflux disease without esophagitis; G47.00 Insomnia, unspecified; R94.31 Abnormal electrocardiogram [ECG] [EKG]; F17.200 Nicotine dependence, unspecified, uncomplicated
CPT/HCPCS: 96365; 96361; 93005; 87040 ×2; 85025 ×2; 80048 ×2; 36415; 83735 ×2; 82550; 85610; 80076; 83605; 84484; 82728 ×3; 84145; 83880; 0240U; 86140 ×2; 71045; 96375; 99285; J0456; J1650; J3010; J1100; J0696 ×2; J7050; J7030; J2920 ×3; G0378 ×3